=== PATIENT | male | born 1955 | race Asian ===

== ENCOUNTER 2017-09-01 12:14 | Day surgery (SDC) | payer OTHER ==
[~2017-09-01 12:14] MED LIST: CEFAZOLIN 2 GM/50 ML (PMX) 50 ML IVPB; SOD CHLORIDE 0.9% 1,000 ML IV
[2017-09-01] MEDS ORDERED: FENTAnyl 50 MCG/ML VIAL (13:54)
[2017-09-01] MEDS: BUPIVACAINE 0.25% (MPF) 30 ML INJ (14:29)
[2017-09-01] MEDS: POLYMYXIN/BACITRACIN 1L IRRIG (14:30)
[2017-09-01] MEDS ORDERED: PROPOFOL 20 ML (14:53)
[2017-09-01] MEDS ORDERED: SUCCINYLCHOLINE CHLORIDE 100 MG/5 ML SYG IV (14:53)
[2017-09-01] MEDS ORDERED: LIDOCAINE 2% (SDV) 5 ML INJ (14:53)
[2017-09-01] MEDS ORDERED: ROCURONIUM 50 MG INJ (14:53)
[2017-09-01] MEDS ORDERED: SUGAMMADEX SODIUM 200 MG/2 ML VIAL IV (14:53)
[2017-09-01] MEDS ORDERED: CEFAZOLIN 1 GM INJ (14:53)
[2017-09-01] MEDS ORDERED: ONDANSETRON 4 MG INJ IV (15:00)
[2017-09-01] MEDS ORDERED: DIPHENHYDRAMINE 50 MG INJ IV (15:00)
[2017-09-01] MEDS ORDERED: FENTAnyl 50 MCG/ML VIAL IV ×2 (15:00)
[2017-09-01] MEDS ORDERED: MEPERIDINE 25 MG INJ IV (15:00)
[2017-09-01] MEDS ORDERED: METOCLOPRAMIDE 10 MG INJ IV (15:00)
[2017-09-01] MEDS ORDERED: HYDROmorphONE (0.2 MG/ML) 10ML SYG IV ×2 (15:00)
[2017-09-01] MEDS ORDERED: ROPIVACAINE 0.5 % 30 ML VIAL (15:04)
[2017-09-01] MEDS ORDERED: HYDROCODONE/APAP (5/325) TAB PO (15:30)
[2017-09-01] MEDS: HYDROmorphONE (0.2 MG/ML) 10ML SYG IV (15:56)
== END 2017-09-01 18:34 | disposition home or self-care (01) ==
LOC: SDS 12:14
DX: K40.30 Unilateral inguinal hernia, with obstruction, without gangrene, not specified as recurrent (principal); I10 Essential (primary) hypertension
CPT/HCPCS: 49507

== ENCOUNTER 2019-02-02 10:38 | Inpatient (IN) | payer MEDICARE, OTHER, MEDICAID ==
[2019-02-02 11:01] LABS: ADD MAN DIFF? NO
[2019-02-02 11:13] LABS: WHITE BLOOD COUNT 6.5 10^3/ul (4.8-10.8)
[2019-02-02 11:13] LABS: BASOPHILS % 0.3 % (0.0-2.0); HEMATOCRIT 43.8 % (42.0-52.0); HEMOGLOBIN 13.5 g/dl (14.0-18.0); LYMPHOCYTES # 0.7 10^3/ul (0.8-2.9); LYMPHOCYTES % 10.6 % (15.0-51.0); MEAN CORPUSCULAR HEMOGLOBIN 27.7 pg (29.0-33.0); MEAN CORPUSCULAR HGB CONC 30.8 g/dl (32.0-37.0); MEAN CORPUSCULAR VOLUME 89.9 fl (82.0-101.0); MONOCYTE # 0.6 10^3/ul (0.3-0.9); MONOCYTES % 8.6 % (0.0-11.0); NEUTROPHIL # 5.2 10^3/ul (1.6-7.5); NEUTROPHILS % 80.2 % (39.0-77.0); PLATELET COUNT 278 10^3/UL (140-415); RED BLOOD COUNT 4.87 10^6/ul (4.70-6.10); RED CELL DISTRIBUTION WIDTH 15.6 % (11.5-14.5)
[2019-02-02 11:14] LABS: AADO2 Arterial 316.6 mmHg (7.0-24.0); Arterial Base Excess -8.9 mmol/L (-3.0-3); Arterial Blood Gas Oxygen Sat 95.6 mmHG (95.0-98.0); Arterial Fraction of Oxyhgb 94.4 % (93.0-99.0); Arterial HCO3 14.9 mmol/L (22.0-26.0); Arterial MetHb 0.3 % (0.0-1.5); Arterial pCO2 27.2 mmhg (35-45); MODE MASK - SIMPLE; Site Right Brachial
[2019-02-02] MEDS: IPRATROPIUM (NEB) 0.5 MG/2.5 ML AMP INH (11:15)
[2019-02-02] MEDS: ALBUTEROL 0.5% (NEB) 2.5 MG/0.5 ML AMP INH (11:15)
[2019-02-02] MEDS: DILTIAZEM 25 MG INJ IV (11:19)
[2019-02-02 11:22] LABS: INR 1.32; PROTIME 16.5 Sec (11.9-14.9); PT RATIO 1.3
[2019-02-02 11:23] LABS: PARTIAL THROMBOPLASTIN TIME 36.5 Sec (23.0-35.0)
[2019-02-02] MEDS: CEFEPIME 2GM/50 ML (PMX) 50 ML IVPB (11:24)
[2019-02-02 11:29] LABS: ALANINE AMINOTRANSFERASE 59 IU/L (13-69); ALBUMIN/GLOBULIN RATIO 1.17; ALKALINE PHOSPHATASE 67 IU/L (42-121); ANION GAP 15 (5-13); ASPARTATE AMINO TRANSFERASE 52 IU/L (15-46); BILIRUBIN,INDIRECT 1.7 mg/dl (0-1.1); BILIRUBIN,TOTAL 1.7 mg/dl (0.2-1.3); BLOOD UREA NITROGEN 30 mg/dl (7-20); CALCIUM 8.6 mg/dl (8.4-10.2); CARBON DIOXIDE 17 mmol/L (21-31); CHLORIDE 114 mmol/L (97-110); CREATINE KINASE 208 IU/L (23-200); CREATININE 1.87 mg/dl (0.61-1.24); Estimated GFR 37 mL/min (>60); GLUCOSE 204 mg/dl (70-220); POTASSIUM 3.9 mmol/L (3.5-5.1); SODIUM 146 mmol/L (135-144); TOTAL PROTEIN 7.4 g/dl (6.1-8.1)
[2019-02-02] MEDS: DILTIAZEM-D5W 125MG/125ML DRIP 125 ML IV (11:30)
[2019-02-02 11:37] LABS: CK INDEX 1.7
[2019-02-02 11:38] LABS: D-DIMER 1554.61 ng/ml (<460)
[2019-02-02] MEDS: LORAZEPAM 2 MG INJ IV (11:40)
[2019-02-02 11:42] LABS: B-TYPE NATRIURETIC PEPTIDE 8220 PG/ML (0-125)
[2019-02-02 11:49] LABS: CK-MB 3.54 ng/ml (0.0-2.4)
[2019-02-02 11:51] LABS: TROPONIN-I 0.144 ng/ml (0.000-0.120)
[2019-02-02] MEDS: VANCOMYCIN 1 GM (PMX) 250 ML IVPB (12:07)
[2019-02-02] MEDS: ASPIRIN 325 MG TAB PO (12:31)
[2019-02-02] MEDS ORDERED: ALBUTEROL 0.083% (NEB) 2.5 MG/3 ML AMP NEB (13:00)
[2019-02-02] MEDS ORDERED: DOCUSATE SODIUM 100 MG CAP PO (13:00)
[2019-02-02] MEDS ORDERED: MAGNESIUM HYDROXIDE 30ML CUP PO (13:00)
[2019-02-02 13:45] LABS: LACTIC ACID 2.7 mmol/L (0.5-2.0)
[2019-02-02] MEDS: ENOXAPARIN 30 MG/0.3 ML SYG SC (14:34)
[2019-02-02 15:52] LABS: CREATINE KINASE 218 IU/L (23-200)
[2019-02-02] MEDS ORDERED: DILTIAZEM-D5W 125MG/125ML DRIP 125 ML IV (16:00)
[2019-02-02 16:03] LABS: CK INDEX 2.2
[2019-02-02 16:15] LABS: CK-MB 4.79 ng/ml (0.0-2.4); TROPONIN-I 0.158 ng/ml (0.000-0.120)
[2019-02-02 16:15] LABS: LACTIC ACID 2.3 mmol/L (0.5-2.0)
[2019-02-02] MEDS: FUROSEMIDE 20 MG INJ IV (18:10)
[2019-02-02] MEDS: METOPROLOL 5 MG INJ IV ×3 (18:10→23:01)
[2019-02-02] MEDS: APIXABAN 5 MG TABLET PO (20:15)
[2019-02-02] MEDS: CEFEPIME 1GM/50 ML (PMX) 50 ML IVPB (20:15)
[2019-02-02] MEDS: ATORVASTATIN 20 MG TAB PO (20:15)
[2019-02-02] MEDS ORDERED: ENOXAPARIN 100 MG/ML SYG SC (21:00)
[2019-02-03] MEDS: METOPROLOL 5 MG INJ IV ×5 (01:08→21:09)
[2019-02-03 01:14] LABS: CREATINE KINASE 228 IU/L (23-200)
[2019-02-03 01:25] LABS: CK INDEX 2.6
[2019-02-03 01:26] LABS: CK-MB 5.86 ng/ml (0.0-2.4)
[2019-02-03 05:19] LABS: ADD MAN DIFF? NO
[2019-02-03 05:32] LABS: BASOPHILS % 0.1 % (0.0-2.0); HEMATOCRIT 49.5 % (42.0-52.0); HEMOGLOBIN 14.9 g/dl (14.0-18.0); LYMPHOCYTES # 0.7 10^3/ul (0.8-2.9); LYMPHOCYTES % 6.6 % (15.0-51.0); MEAN CORPUSCULAR HEMOGLOBIN 28.1 pg (29.0-33.0); MEAN CORPUSCULAR HGB CONC 30.1 g/dl (32.0-37.0); MEAN CORPUSCULAR VOLUME 93.4 fl (82.0-101.0); MEAN PLATELET VOLUME 9.9 fl (7.4-10.4); MONOCYTE # 0.9 10^3/ul (0.3-0.9); MONOCYTES % 8.8 % (0.0-11.0); NEUTROPHIL # 8.5 10^3/ul (1.6-7.5); NEUTROPHILS % 83.9 % (39.0-77.0); PLATELET COUNT 203 10^3/UL (140-415); RED CELL DISTRIBUTION WIDTH 16.2 % (11.5-14.5)
[2019-02-03 05:32] LABS: WHITE BLOOD COUNT 10.1 10^3/ul (4.8-10.8)
[2019-02-03] MEDS: PANTOPRAZOLE (EC) 40 MG TAB PO (05:43)
[2019-02-03] MEDS: FUROSEMIDE 20 MG INJ IV (05:43)
[2019-02-03 05:59] LABS: CREATINE KINASE 246 IU/L (23-200)
[2019-02-03 06:00] LABS: LACTIC ACID 4.4 mmol/L (0.5-2.0)
[2019-02-03 06:01] LABS: CHOL/HDL RATIO 2.2 RATIO; HDL CHOLESTEROL 44 mg/dl (30-78); LDL CHOLESTEROL,CALCULATED 48 mg/dl; TRIGLYCERIDES 46 mg/dl (0-149)
[2019-02-03 06:01] LABS: CHOLESTEROL 101 mg/dl (100-200)
[2019-02-03 06:03] LABS: ALBUMIN 3.9 g/dl (3.3-4.9); ALBUMIN/GLOBULIN RATIO 1.18; ALKALINE PHOSPHATASE 73 IU/L (42-121); ANION GAP 17 (5-13); BILIRUBIN,INDIRECT 2.7 mg/dl (0-1.1); BILIRUBIN,TOTAL 2.8 mg/dl (0.2-1.3); BLOOD UREA NITROGEN 42 mg/dl (7-20); CALCIUM 8.9 mg/dl (8.4-10.2); CARBON DIOXIDE 14 mmol/L (21-31); CHLORIDE 115 mmol/L (97-110); CREATININE 2.45 mg/dl (0.61-1.24); Estimated GFR 27 mL/min (>60); GLUCOSE 97 mg/dl (70-220); MAGNESIUM 2.3 mg/dl (1.7-2.5); POTASSIUM 5.5 mmol/L (3.5-5.1); SODIUM 146 mmol/L (135-144); TOTAL PROTEIN 7.2 g/dl (6.1-8.1)
[2019-02-03 06:05] LABS: CK INDEX 2.8
[2019-02-03 06:13] LABS: ALANINE AMINOTRANSFERASE 2231 IU/L (13-69)
[2019-02-03] MEDS: SOD CHLORIDE 0.9% 500 ML IV (06:14)
[2019-02-03] MEDS: INSULIN REGULAR, HUMAN 100 UNIT/1 ML 3ML VIAL IVP (06:58)
[2019-02-03] MEDS ORDERED: DEXTROSE 50% 50 ML SYRINGE IV (07:00)
[2019-02-03] MEDS: DEXTROSE 50% 50 ML SYRINGE IV (07:00)
[2019-02-03] MEDS ORDERED: AMLODIPINE 10 MG TAB PO (09:00)
[2019-02-03] MEDS: NA POLYST SULFON 15 GM/60 ML BTL PO (10:22)
[2019-02-03] MEDS: CEFEPIME 1GM/50 ML (PMX) 50 ML IVPB ×2 (10:23→21:05)
[2019-02-03] MEDS: APIXABAN 5 MG TABLET PO ×2 (10:23→21:05)
[2019-02-03 11:36] LABS: LACTIC ACID 5.4 mmol/L (0.5-2.0)
[2019-02-03] MEDS: ASPIRIN (EC) 81 MG TAB PO (11:59)
[2019-02-03] MEDS: METOPROLOL (XL) 50 MG TAB PO (12:00)
[2019-02-03] MEDS: LIDOCAINE 1% (MPF) 5 ML VIAL SC (12:30)
[2019-02-03 13:18] LABS: AADO2 Arterial 259.5 mmHg (7.0-24.0); Allen Test ACCEPTAB; Arterial Base Excess -13.4 mmol/L (-3.0-3); Arterial Blood Gas Oxygen Sat 91.8 mmHG (95.0-98.0); Arterial COHb 0.8 % (0.0-3.0); Arterial Fraction of Oxyhgb 90.8 % (93.0-99.0); Arterial HCO3 10.8 mmol/L (22.0-26.0); Arterial MetHb 0.3 % (0.0-1.5); Arterial pCO2 22.5 mmhg (35-45); MODE HFNC; Site Left Radial
[2019-02-03] MEDS: BUMETANIDE 12 MG in DEXTROSE 5% 72 ML IV (16:00)
[2019-02-03] MEDS: SODIUM BICARBONATE (IV ADD) 100 MEQ in DEXTROSE 5% 900 ML IV (16:02)
[2019-02-03 17:08] LABS: ADD UMIC YES; UR ASCORBIC ACID NEGATIVE (NEGATIVE); UR BACTERIA FEW /HPF (NONE SEEN); UR BILIRUBIN (Dip) NEGATIVE (NEGATIVE); UR BLOOD (Dip) 3+ mg/dL (NEGATIVE); UR CLARITY CLOUDY (CLEAR); UR COLOR AMBER (YELLOW); UR GLUCOSE (Dip) NEGATIVE (NEGATIVE); UR KETONES (Dip) NEGATIVE (NEGATIVE); UR LEUKOCYTE ESTERASE (Dip) 1+ Leu/ul (NEGATIVE); UR MUCUS FEW /HPF (NONE SEEN); UR NITRITE (Dip) NEGATIVE (NEGATIVE); UR RBC 52 /HPF (0-5); UR SPECIFIC GRAVITY (Dip) 1.013 (1.003-1.030); UR TOTAL PROTEIN (Dip) 2+ mg/dl (NEGATIVE); UR UROBILINOGEN (Dip) NEGATIVE (NEGATIVE); UR WBC 7 /HPF (0-5)
[2019-02-03 17:12] LABS: HEMATOCRIT 46.8 % (42.0-52.0); HEMOGLOBIN 14.4 g/dl (14.0-18.0)
[2019-02-03 17:17] LABS: SODIUM,URINE RANDOM 20 mmol/L (30-90)
[2019-02-03 17:21] LABS: CREATININE,URINE RANDOM 130.53 mg/dl (20-370); PROTEIN/CREAT RATIO 0.98 RATIO
[2019-02-03 18:07] LABS: LACTIC ACID 3.7 mmol/L (0.5-2.0)
[2019-02-03] MEDS: ATORVASTATIN 20 MG TAB PO (21:05)
[2019-02-03] MEDS: morphine 2 MG INJ IV (23:20)
[2019-02-04] MEDS: METOPROLOL 5 MG INJ IV ×2 (02:13→17:27)
[2019-02-04 03:13] LABS: ADD UMIC YES; UR AMORPHOUS CRYSTAL FEW /HPF (NONE SEEN); UR ASCORBIC ACID NEGATIVE (NEGATIVE); UR BACTERIA FEW /HPF (NONE SEEN); UR BILIRUBIN (Dip) NEGATIVE (NEGATIVE); UR BLOOD (Dip) 2+ mg/dL (NEGATIVE); UR CLARITY CLOUDY (CLEAR); UR COLOR AMBER (YELLOW); UR GLUCOSE (Dip) NEGATIVE (NEGATIVE); UR HYALINE CAST FEW /HPF (NONE SEEN); UR KETONES (Dip) TRACE mg/dL (NEGATIVE); UR LEUKOCYTE ESTERASE (Dip) TRACE Leu/ul (NEGATIVE); UR MUCUS MANY /HPF (NONE SEEN); UR NITRITE (Dip) NEGATIVE (NEGATIVE); UR RBC 36 /HPF (0-5); UR SPECIFIC GRAVITY (Dip) 1.017 (1.003-1.030); UR SQUAMOUS EPITHELIAL CELL FEW /HPF (FEW); UR TOTAL PROTEIN (Dip) 2+ mg/dl (NEGATIVE); UR UROBILINOGEN (Dip) NEGATIVE (NEGATIVE); UR WBC 8 /HPF (0-5)
[2019-02-04] MEDS: SODIUM BICARBONATE (IV ADD) 100 MEQ in DEXTROSE 5% 900 ML IV ×2 (05:07→14:55)
[2019-02-04] MEDS: PANTOPRAZOLE (EC) 40 MG TAB PO (05:07)
[2019-02-04 05:44] LABS: ADD MAN DIFF? NO
[2019-02-04 05:52] LABS: BASOPHILS % 0.1 % (0.0-2.0); HEMOGLOBIN 14.5 g/dl (14.0-18.0); LYMPHOCYTES # 0.6 10^3/ul (0.8-2.9); LYMPHOCYTES % 4.2 % (15.0-51.0); MEAN CORPUSCULAR HEMOGLOBIN 28.3 pg (29.0-33.0); MEAN CORPUSCULAR HGB CONC 31.5 g/dl (32.0-37.0); MEAN CORPUSCULAR VOLUME 89.7 fl (82.0-101.0); MEAN PLATELET VOLUME 9.9 fl (7.4-10.4); MONOCYTES % 6.6 % (0.0-11.0); NEUTROPHIL # 13.2 10^3/ul (1.6-7.5); NEUTROPHILS % 88.4 % (39.0-77.0); NUCLEATED RED BLOOD CELLS # 0.1 10^3/ul (0.0-0.0); NUCLEATED RED BLOOD CELLS% 0.5 /100WBC (0.0-0.0); PLATELET COUNT 176 10^3/UL (140-415); RED BLOOD COUNT 5.13 10^6/ul (4.70-6.10); RED CELL DISTRIBUTION WIDTH 15.7 % (11.5-14.5)
[2019-02-04 05:52] LABS: WHITE BLOOD COUNT 14.9 10^3/ul (4.8-10.8)
[2019-02-04 06:16] LABS: ALBUMIN 3.7 g/dl (3.3-4.9); ALBUMIN/GLOBULIN RATIO 1.08; ALKALINE PHOSPHATASE 87 IU/L (42-121); ANION GAP 13 (5-13); BILIRUBIN,INDIRECT 1.8 mg/dl (0-1.1); BILIRUBIN,TOTAL 1.8 mg/dl (0.2-1.3); BLOOD UREA NITROGEN 64 mg/dl (7-20); CALCIUM 7.7 mg/dl (8.4-10.2); CARBON DIOXIDE 17 mmol/L (21-31); CHLORIDE 109 mmol/L (97-110); CREATINE KINASE 325 IU/L (23-200); CREATININE 3.34 mg/dl (0.61-1.24); Estimated GFR 19 mL/min (>60); GLUCOSE 139 mg/dl (70-220); MAGNESIUM 2.4 mg/dl (1.7-2.5); POTASSIUM 5.8 mmol/L (3.5-5.1); SODIUM 139 mmol/L (135-144); TOTAL PROTEIN 7.1 g/dl (6.1-8.1)
[2019-02-04 06:16] LABS: URIC ACID 14.2 mg/dl (3.1-7.9)
[2019-02-04 06:19] LABS: LACTIC ACID 2.9 mmol/L (0.5-2.0)
[2019-02-04] MEDS: DEXTROSE 50% 50 ML SYRINGE IV (06:51)
[2019-02-04] MEDS: INSULIN REGULAR, HUMAN 100 UNIT/1 ML 3ML VIAL IVP (06:53)
[2019-02-04 07:15] LABS: ASPARTATE AMINO TRANSFERASE 4363 IU/L (15-46)
[2019-02-04 07:27] LABS: ALANINE AMINOTRANSFERASE 4246 IU/L (13-69)
[2019-02-04] MEDS ORDERED: FUROSEMIDE 20 MG INJ IV (09:00)
[2019-02-04] MEDS: CEFEPIME 1GM/50 ML (PMX) 50 ML IVPB ×2 (09:44→22:04)
[2019-02-04] MEDS: ASPIRIN (EC) 81 MG TAB PO (09:44)
[2019-02-04] MEDS: APIXABAN 5 MG TABLET PO ×2 (09:44→21:00)
[2019-02-04] MEDS: METOPROLOL (XL) 50 MG TAB PO ×2 (09:45→11:50)
[2019-02-04 10:16] LABS: AADO2 Arterial 160.8 mmHg (7.0-24.0); Allen Test ACCEPTAB; Arterial Base Excess -9.9 mmol/L (-3.0-3); Arterial Blood Gas Oxygen Sat 89.2 mmHG (95.0-98.0); Arterial COHb 0.9 % (0.0-3.0); Arterial Fraction of Oxyhgb 88.3 % (93.0-99.0); Arterial HCO3 17.1 mmol/L (22.0-26.0); Arterial MetHb 0.1 % (0.0-1.5); Arterial pCO2 41.4 mmhg (35-45); MODE NASAL CANNULA; Site Left Radial
[2019-02-04] MEDS: BUMETANIDE 12 MG in DEXTROSE 5% 72 ML IV (11:12)
[2019-02-04 11:17] LABS: HAAIG REFLEX REFLEX FILED
[2019-02-04] MEDS: NA BICARBONATE 8.4% 50 ML SYG IV ×2 (11:45→11:46)
[2019-02-04] MEDS: ALBUMIN HUMAN 25% 100 ML IV ×2 (11:48→18:29)
[2019-02-04 13:33] LABS: HEPATITIS B SURFACE ANTIGEN NEGATIVE (NEGATIVE)
[2019-02-04 13:51] LABS: HEPATITIS B CORE ANTIBODY REACTIVE (NEGATIVE); HEPATITIS C VIRAL ANTIBODY NEGATIVE (NEGATIVE)
[2019-02-04] MEDS: morphine 2 MG INJ IV (14:56)
[2019-02-04] MEDS: ATORVASTATIN 20 MG TAB PO (21:00)
[2019-02-04] MEDS ORDERED: PENDING SANTYL ORDER FOR WOUND CARE XX (21:00)
[2019-02-04 21:11] LABS: AADO2 Arterial 139.3 mmHg (7.0-24.0); Allen Test ACCEPTAB; Arterial Base Excess 1.9 mmol/L (-3.0-3); Arterial Blood Gas Oxygen Sat 96.5 mmHG (95.0-98.0); Arterial COHb 0.6 % (0.0-3.0); Arterial Fraction of Oxyhgb 95.8 % (93.0-99.0); Arterial HCO3 26.6 mmol/L (22.0-26.0); Arterial MetHb 0.1 % (0.0-1.5); Arterial pCO2 41.7 mmhg (35-45); Blood Gas IEPAP 15/5; Blood Gas PS 10; MODE MASK - BIPAP; Site Right Radial
[2019-02-05] MEDS: SODIUM BICARBONATE (IV ADD) 100 MEQ in DEXTROSE 5% 900 ML IV (02:13)
[2019-02-05] MEDS: ALBUMIN HUMAN 25% 100 ML IV ×3 (02:16→16:27)
[2019-02-05 05:21] LABS: ADD MAN DIFF? NO
[2019-02-05 05:34] LABS: WHITE BLOOD COUNT 11.8 10^3/ul (4.8-10.8)
[2019-02-05 05:34] LABS: ABNORMAL IP MESSAGE 1; BASOPHILS % 0.1 % (0.0-2.0); EOSINOPHILS % 0.2 % (0.0-7.0); HEMATOCRIT 37.4 % (42.0-52.0); HEMOGLOBIN 12.1 g/dl (14.0-18.0); LYMPHOCYTES # 0.5 10^3/ul (0.8-2.9); LYMPHOCYTES % 4.5 % (15.0-51.0); MEAN CORPUSCULAR HEMOGLOBIN 28.1 pg (29.0-33.0); MEAN CORPUSCULAR HGB CONC 32.4 g/dl (32.0-37.0); MEAN PLATELET VOLUME 10.2 fl (7.4-10.4); MONOCYTE # 0.7 10^3/ul (0.3-0.9); MONOCYTES % 5.8 % (0.0-11.0); NEUTROPHIL # 10.5 10^3/ul (1.6-7.5); NEUTROPHILS % 88.9 % (39.0-77.0); NUCLEATED RED BLOOD CELLS% 0.3 /100WBC (0.0-0.0); PLATELET COUNT 137 10^3/UL (140-415); POSITIVE DIFF @See below; RED CELL DISTRIBUTION WIDTH 15.2 % (11.5-14.5)
[2019-02-05] MEDS: PANTOPRAZOLE (EC) 40 MG TAB PO (05:47)
[2019-02-05 06:23] LABS: ALBUMIN 3.8 g/dl (3.3-4.9); ALKALINE PHOSPHATASE 66 IU/L (42-121); ANION GAP 12 (5-13); BILIRUBIN,INDIRECT 1.8 mg/dl (0-1.1); BILIRUBIN,TOTAL 1.8 mg/dl (0.2-1.3); BLOOD UREA NITROGEN 67 mg/dl (7-20); CALCIUM 7.2 mg/dl (8.4-10.2); CARBON DIOXIDE 39 mmol/L (21-31); CHLORIDE 93 mmol/L (97-110); CREATININE 2.42 mg/dl (0.61-1.24); Estimated GFR 27 mL/min (>60); GLUCOSE 136 mg/dl (70-220); MAGNESIUM 2.1 mg/dl (1.7-2.5); SODIUM 144 mmol/L (135-144); TOTAL PROTEIN 6.5 g/dl (6.1-8.1)
[2019-02-05 06:34] LABS: ALANINE AMINOTRANSFERASE 2206 IU/L (13-69); ASPARTATE AMINO TRANSFERASE 1424 IU/L (15-46)
[2019-02-05 06:35] LABS: POTASSIUM 2.7 mmol/L (3.5-5.1)
[2019-02-05] MEDS: POTASSIUM CHLORIDE (SR) 10 MEQ TAB PO (07:46)
[2019-02-05] MEDS: APIXABAN 5 MG TABLET PO ×2 (08:28→21:16)
[2019-02-05] MEDS: ASPIRIN (EC) 81 MG TAB PO (08:28)
[2019-02-05] MEDS: CEFEPIME 1GM/50 ML (PMX) 50 ML IVPB ×2 (08:28→21:16)
[2019-02-05] MEDS: METOPROLOL (XL) 100 MG TAB PO (08:31)
[2019-02-05] MEDS: METOPROLOL 5 MG INJ IV (09:11)
[2019-02-05] MEDS ORDERED: AMIODARONE 150MG/D5W BOLUS 100 ML IV (10:00)
[2019-02-05] MEDS: AMIODARONE 150MG/D5W BOLUS 100 ML IV (10:17)
[2019-02-05] MEDS: BUMETANIDE 1 MG INJ IV ×2 (10:24→16:27)
[2019-02-05] MEDS: AMIODARONE 900 MG in DEXTROSE 5% 482 ML IV (10:44)
[2019-02-05 16:03] LABS: ALBUMIN 4.1 g/dl (3.3-4.9); ALBUMIN/GLOBULIN RATIO 1.46; ALKALINE PHOSPHATASE 73 IU/L (42-121); ANION GAP 11 (5-13); BILIRUBIN,INDIRECT 1.9 mg/dl (0-1.1); BILIRUBIN,TOTAL 1.9 mg/dl (0.2-1.3); BLOOD UREA NITROGEN 68 mg/dl (7-20); CALCIUM 7.6 mg/dl (8.4-10.2); CARBON DIOXIDE 39 mmol/L (21-31); CHLORIDE 89 mmol/L (97-110); CREATININE 2.15 mg/dl (0.61-1.24); Estimated GFR 31 mL/min (>60); GLUCOSE 127 mg/dl (70-220); POTASSIUM 3.5 mmol/L (3.5-5.1); SODIUM 139 mmol/L (135-144); TOTAL PROTEIN 6.9 g/dl (6.1-8.1)
[2019-02-05 16:10] LABS: ASPARTATE AMINO TRANSFERASE 1126 IU/L (15-46)
[2019-02-05 16:11] LABS: ALANINE AMINOTRANSFERASE 2010 IU/L (13-69)
[2019-02-05] MEDS: ONDANSETRON 4 MG INJ IV (16:27)
[2019-02-05] MEDS: ATORVASTATIN 20 MG TAB PO (21:16)
[2019-02-05] MEDS ORDERED: NORepinephrine 8MG/250 ML (PMX 250 ML IV (23:00)
[2019-02-06] MEDS: ALBUMIN HUMAN 25% 100 ML IV (03:30)
[2019-02-06 05:09] LABS: ADD MAN DIFF? NO
[2019-02-06 05:27] LABS: BASOPHILS % 0.2 % (0.0-2.0); EOSINOPHILS % 0.4 % (0.0-7.0); HEMATOCRIT 36.3 % (42.0-52.0); HEMOGLOBIN 11.7 g/dl (14.0-18.0); LYMPHOCYTES # 0.9 10^3/ul (0.8-2.9); LYMPHOCYTES % 8.7 % (15.0-51.0); MEAN CORPUSCULAR HEMOGLOBIN 28.3 pg (29.0-33.0); MEAN CORPUSCULAR HGB CONC 32.2 g/dl (32.0-37.0); MEAN CORPUSCULAR VOLUME 87.9 fl (82.0-101.0); MEAN PLATELET VOLUME 10.3 fl (7.4-10.4); MONOCYTE # 0.8 10^3/ul (0.3-0.9); MONOCYTES % 7.9 % (0.0-11.0); NEUTROPHIL # 8.1 10^3/ul (1.6-7.5); NEUTROPHILS % 82.4 % (39.0-77.0); NUCLEATED RED BLOOD CELLS # 0.1 10^3/ul (0.0-0.0); NUCLEATED RED BLOOD CELLS% 0.6 /100WBC (0.0-0.0); PLATELET COUNT 128 10^3/UL (140-415); RED BLOOD COUNT 4.13 10^6/ul (4.70-6.10); RED CELL DISTRIBUTION WIDTH 15.4 % (11.5-14.5)
[2019-02-06 05:27] LABS: WHITE BLOOD COUNT 9.8 10^3/ul (4.8-10.8)
[2019-02-06 05:55] LABS: ALBUMIN 4.1 g/dl (3.3-4.9); ALBUMIN/GLOBULIN RATIO 1.51; ALKALINE PHOSPHATASE 70 IU/L (42-121); ASPARTATE AMINO TRANSFERASE 678 IU/L (15-46); BILIRUBIN,INDIRECT 1.6 mg/dl (0-1.1); BILIRUBIN,TOTAL 1.6 mg/dl (0.2-1.3); BLOOD UREA NITROGEN 69 mg/dl (7-20); CALCIUM 7.7 mg/dl (8.4-10.2); CHLORIDE 88 mmol/L (97-110); CREATININE 2.32 mg/dl (0.61-1.24); Estimated GFR 29 mL/min (>60); GLUCOSE 105 mg/dl (70-220); MAGNESIUM 2.2 mg/dl (1.7-2.5); POTASSIUM 3.1 mmol/L (3.5-5.1); SODIUM 140 mmol/L (135-144); TOTAL PROTEIN 6.8 g/dl (6.1-8.1)
[2019-02-06] MEDS: BUMETANIDE 1 MG INJ IV (06:00)
[2019-02-06] MEDS: PANTOPRAZOLE (EC) 40 MG TAB PO (06:02)
[2019-02-06 06:05] LABS: ANION GAP 13 (5-13)
[2019-02-06 06:51] LABS: ALANINE AMINOTRANSFERASE 1493 IU/L (13-69); CARBON DIOXIDE 39 mmol/L (21-31)
[2019-02-06] MEDS: POTASSIUM CHLORIDE (SR) 20 MEQ TAB PO ×2 (07:08→13:10)
[2019-02-06] MEDS: CEFEPIME 1GM/50 ML (PMX) 50 ML IVPB (08:20)
[2019-02-06] MEDS: APIXABAN 5 MG TABLET PO ×2 (08:20→20:56)
[2019-02-06] MEDS: METOPROLOL (XL) 100 MG TAB PO (08:21)
[2019-02-06] MEDS: ASPIRIN (EC) 81 MG TAB PO (08:21)
[2019-02-06] MEDS ORDERED: POTASSIUM CHLORIDE 100 ML IVPB (09:30)
[2019-02-06] MEDS: AMIODARONE 200 MG TAB PO ×2 (13:11→20:56)
[2019-02-06] MEDS: DIGOXIN 500 MCG INJ IV (15:16)
[2019-02-06] MEDS: METOPROLOL (XL) 50 MG TAB PO (20:55)
[2019-02-06] MEDS: ATORVASTATIN 20 MG TAB PO (20:56)
[2019-02-07 04:56] LABS: AADO2 Arterial 137.1 mmHg (7.0-24.0); Allen Test ACCEPTAB; Arterial Blood Gas Oxygen Sat 95.9 mmHG (95.0-98.0); Arterial COHb 0.7 % (0.0-3.0); Arterial Fraction of Oxyhgb 95.1 % (93.0-99.0); Arterial HCO3 32.6 mmol/L (22.0-26.0); Arterial MetHb 0.1 % (0.0-1.5); Arterial pCO2 50.1 mmhg (35-45); Blood Gas IEPAP 15/5; Blood Gas PS 10; MODE MASK - BIPAP; Site Left Radial
[2019-02-07 05:16] LABS: ADD MAN DIFF? NO
[2019-02-07 05:27] LABS: WHITE BLOOD COUNT 9.8 10^3/ul (4.8-10.8)
[2019-02-07 05:27] LABS: BASOPHILS % 0.2 % (0.0-2.0); EOSINOPHILS # 0.1 10^3/ul (0.0-0.5); EOSINOPHILS % 0.9 % (0.0-7.0); HEMATOCRIT 37.5 % (42.0-52.0); HEMOGLOBIN 11.9 g/dl (14.0-18.0); LYMPHOCYTES # 0.8 10^3/ul (0.8-2.9); LYMPHOCYTES % 8.4 % (15.0-51.0); MEAN CORPUSCULAR HEMOGLOBIN 28.2 pg (29.0-33.0); MEAN CORPUSCULAR HGB CONC 31.7 g/dl (32.0-37.0); MEAN CORPUSCULAR VOLUME 88.9 fl (82.0-101.0); MEAN PLATELET VOLUME 10.4 fl (7.4-10.4); MONOCYTES % 10.6 % (0.0-11.0); NEUTROPHIL # 7.8 10^3/ul (1.6-7.5); NEUTROPHILS % 79.5 % (39.0-77.0); NUCLEATED RED BLOOD CELLS # 0.1 10^3/ul (0.0-0.0); NUCLEATED RED BLOOD CELLS% 0.6 /100WBC (0.0-0.0); PLATELET COUNT 142 10^3/UL (140-415); RED BLOOD COUNT 4.22 10^6/ul (4.70-6.10); RED CELL DISTRIBUTION WIDTH 15.7 % (11.5-14.5)
[2019-02-07 05:49] LABS: LACTIC ACID 1.2 mmol/L (0.5-2.0)
[2019-02-07 05:54] LABS: DIGOXIN 0.5 ng/ml (1.0-2.0)
[2019-02-07 05:59] LABS: ALBUMIN 3.9 g/dl (3.3-4.9); ALKALINE PHOSPHATASE 85 IU/L (42-121); ANION GAP 9 (5-13); ASPARTATE AMINO TRANSFERASE 379 IU/L (15-46); BILIRUBIN,INDIRECT 1.6 mg/dl (0-1.1); BILIRUBIN,TOTAL 1.6 mg/dl (0.2-1.3); BLOOD UREA NITROGEN 61 mg/dl (7-20); CALCIUM 8.2 mg/dl (8.4-10.2); CARBON DIOXIDE 39 mmol/L (21-31); CHLORIDE 91 mmol/L (97-110); CREATININE 1.75 mg/dl (0.61-1.24); Estimated GFR 40 mL/min (>60); GLUCOSE 108 mg/dl (70-220); MAGNESIUM 2.4 mg/dl (1.7-2.5); POTASSIUM 3.8 mmol/L (3.5-5.1); SODIUM 139 mmol/L (135-144); TOTAL PROTEIN 6.5 g/dl (6.1-8.1)
[2019-02-07 06:02] LABS: B-TYPE NATRIURETIC PEPTIDE 3470 PG/ML (0-125)
[2019-02-07 06:11] LABS: ALANINE AMINOTRANSFERASE 1156 IU/L (13-69)
[2019-02-07] MEDS: PANTOPRAZOLE (EC) 40 MG TAB PO (06:19)
[2019-02-07] MEDS: APIXABAN 5 MG TABLET PO ×2 (09:04→20:18)
[2019-02-07] MEDS: AMIODARONE 200 MG TAB PO ×2 (09:04→13:10)
[2019-02-07] MEDS: ASPIRIN (EC) 81 MG TAB PO (09:05)
[2019-02-07] MEDS: BUMETANIDE 1 MG INJ IV (09:05)
[2019-02-07] MEDS: METOPROLOL (XL) 50 MG TAB PO ×2 (09:05→20:18)
[2019-02-07] MEDS: DIGOXIN 500 MCG INJ IV (14:51)
[2019-02-07] MEDS: ATORVASTATIN 20 MG TAB PO (20:18)
[2019-02-08] MEDS: PANTOPRAZOLE (EC) 40 MG TAB PO (06:19)
[2019-02-08 06:26] LABS: ADD MAN DIFF? NO
[2019-02-08 06:31] LABS: WHITE BLOOD COUNT 8.9 10^3/ul (4.8-10.8)
[2019-02-08 06:31] LABS: BASOPHILS % 0.2 % (0.0-2.0); EOSINOPHILS # 0.2 10^3/ul (0.0-0.5); HEMATOCRIT 36.5 % (42.0-52.0); HEMOGLOBIN 11.5 g/dl (14.0-18.0); LYMPHOCYTES # 0.9 10^3/ul (0.8-2.9); LYMPHOCYTES % 10.2 % (15.0-51.0); MEAN CORPUSCULAR HGB CONC 31.5 g/dl (32.0-37.0); MEAN CORPUSCULAR VOLUME 88.8 fl (82.0-101.0); MEAN PLATELET VOLUME 10.2 fl (7.4-10.4); MONOCYTE # 0.9 10^3/ul (0.3-0.9); MONOCYTES % 9.9 % (0.0-11.0); NEUTROPHIL # 6.9 10^3/ul (1.6-7.5); NEUTROPHILS % 77.3 % (39.0-77.0); NUCLEATED RED BLOOD CELLS% 0.2 /100WBC (0.0-0.0); PLATELET COUNT 139 10^3/UL (140-415); RED BLOOD COUNT 4.11 10^6/ul (4.70-6.10); RED CELL DISTRIBUTION WIDTH 15.3 % (11.5-14.5)
[2019-02-08 07:01] LABS: DIGOXIN 0.4 ng/ml (1.0-2.0)
[2019-02-08 07:03] LABS: ALANINE AMINOTRANSFERASE 867 IU/L (13-69); ALBUMIN 3.8 g/dl (3.3-4.9); ALKALINE PHOSPHATASE 125 IU/L (42-121); ANION GAP 9 (5-13); ASPARTATE AMINO TRANSFERASE 247 IU/L (15-46); BILIRUBIN,INDIRECT 1.7 mg/dl (0-1.1); BILIRUBIN,TOTAL 1.7 mg/dl (0.2-1.3); BLOOD UREA NITROGEN 53 mg/dl (7-20); CALCIUM 8.5 mg/dl (8.4-10.2); CARBON DIOXIDE 38 mmol/L (21-31); CHLORIDE 93 mmol/L (97-110); CREATININE 1.55 mg/dl (0.61-1.24); Estimated GFR 46 mL/min (>60); GLUCOSE 115 mg/dl (70-220); MAGNESIUM 2.3 mg/dl (1.7-2.5); POTASSIUM 3.6 mmol/L (3.5-5.1); SODIUM 140 mmol/L (135-144); TOTAL PROTEIN 6.5 g/dl (6.1-8.1)
[2019-02-08] MEDS: BUMETANIDE 1 MG INJ IV (08:32)
[2019-02-08] MEDS: ASPIRIN (EC) 81 MG TAB PO (08:32)
[2019-02-08] MEDS: APIXABAN 5 MG TABLET PO ×2 (08:32→20:16)
[2019-02-08] MEDS: METOPROLOL (XL) 50 MG TAB PO ×2 (08:32→20:19)
[2019-02-08] MEDS: ATORVASTATIN 20 MG TAB PO (20:16)
[2019-02-09] MEDS: BUMETANIDE 1 MG TAB PO ×2 (06:08→08:16)
[2019-02-09] MEDS: PANTOPRAZOLE (EC) 40 MG TAB PO (06:08)
[2019-02-09 07:31] LABS: ADD MAN DIFF? NO
[2019-02-09 07:34] LABS: WHITE BLOOD COUNT 9.4 10^3/ul (4.8-10.8)
[2019-02-09 07:34] LABS: BASOPHILS % 0.3 % (0.0-2.0); EOSINOPHILS # 0.2 10^3/ul (0.0-0.5); EOSINOPHILS % 2.2 % (0.0-7.0); HEMATOCRIT 36.4 % (42.0-52.0); LYMPHOCYTES # 0.9 10^3/ul (0.8-2.9); LYMPHOCYTES % 9.2 % (15.0-51.0); MEAN CORPUSCULAR HEMOGLOBIN 27.5 pg (29.0-33.0); MEAN CORPUSCULAR HGB CONC 30.2 g/dl (32.0-37.0); MEAN PLATELET VOLUME 10.1 fl (7.4-10.4); MONOCYTE # 1.1 10^3/ul (0.3-0.9); MONOCYTES % 12.1 % (0.0-11.0); NEUTROPHIL # 7.1 10^3/ul (1.6-7.5); NEUTROPHILS % 75.9 % (39.0-77.0); PLATELET COUNT 137 10^3/UL (140-415); RED CELL DISTRIBUTION WIDTH 15.2 % (11.5-14.5)
[2019-02-09 07:59] LABS: MAGNESIUM 2.1 mg/dl (1.7-2.5)
[2019-02-09 08:01] LABS: ALANINE AMINOTRANSFERASE 679 IU/L (13-69); ALKALINE PHOSPHATASE 114 IU/L (42-121); ASPARTATE AMINO TRANSFERASE 162 IU/L (15-46); BILIRUBIN,INDIRECT 1.4 mg/dl (0-1.1); BLOOD UREA NITROGEN 49 mg/dl (7-20); CALCIUM 8.8 mg/dl (8.4-10.2); CHLORIDE 93 mmol/L (97-110); CREATININE 1.48 mg/dl (0.61-1.24); Estimated GFR 48 mL/min (>60); GLUCOSE 105 mg/dl (70-220); POTASSIUM 3.2 mmol/L (3.5-5.1); SODIUM 140 mmol/L (135-144)
[2019-02-09 08:02] LABS: ALBUMIN 3.5 g/dl (3.3-4.9); BILIRUBIN,TOTAL 1.4 mg/dl (0.2-1.3); TOTAL PROTEIN 6.4 g/dl (6.1-8.1)
[2019-02-09 08:16] LABS: ANION GAP 9 (5-13)
[2019-02-09] MEDS: METOPROLOL (XL) 50 MG TAB PO (08:16)
[2019-02-09] MEDS: APIXABAN 5 MG TABLET PO ×2 (08:16→20:09)
[2019-02-09] MEDS: ASPIRIN (EC) 81 MG TAB PO (08:17)
[2019-02-09 08:19] LABS: CARBON DIOXIDE 38 mmol/L (21-31)
[2019-02-09] MEDS: POTASSIUM CHLORIDE 20 MEQ POWDER FOR ORAL SOLN PO (11:45)
[2019-02-09] MEDS: ATORVASTATIN 20 MG TAB PO (20:09)
[2019-02-09] MEDS: METOPROLOL (XL) 100 MG TAB PO (20:10)
[2019-02-10] MEDS: PANTOPRAZOLE (EC) 40 MG TAB PO (05:43)
[2019-02-10 06:52] LABS: ADD MAN DIFF? NO
[2019-02-10 06:59] LABS: BASOPHILS % 0.3 % (0.0-2.0); EOSINOPHILS # 0.3 10^3/ul (0.0-0.5); EOSINOPHILS % 2.7 % (0.0-7.0); HEMATOCRIT 35.5 % (42.0-52.0); HEMOGLOBIN 10.8 g/dl (14.0-18.0); LYMPHOCYTES % 10.9 % (15.0-51.0); MEAN CORPUSCULAR HEMOGLOBIN 27.7 pg (29.0-33.0); MEAN CORPUSCULAR HGB CONC 30.4 g/dl (32.0-37.0); MONOCYTE # 1.3 10^3/ul (0.3-0.9); MONOCYTES % 13.6 % (0.0-11.0); NEUTROPHIL # 6.8 10^3/ul (1.6-7.5); PLATELET COUNT 134 10^3/UL (140-415); RED CELL DISTRIBUTION WIDTH 15.5 % (11.5-14.5)
[2019-02-10 06:59] LABS: WHITE BLOOD COUNT 9.5 10^3/ul (4.8-10.8)
[2019-02-10 07:16] LABS: BLOOD UREA NITROGEN 42 mg/dl (7-20); CALCIUM 8.6 mg/dl (8.4-10.2); CHLORIDE 97 mmol/L (97-110); CREATININE 1.25 mg/dl (0.61-1.24); Estimated GFR 58 mL/min (>60); GLUCOSE 94 mg/dl (70-220); MAGNESIUM 1.9 mg/dl (1.7-2.5); PHOSPHORUS 3.1 mg/dl (2.5-4.9); POTASSIUM 3.4 mmol/L (3.5-5.1); SODIUM 144 mmol/L (135-144)
[2019-02-10 07:34] LABS: ANION GAP 7 (5-13)
[2019-02-10 07:44] LABS: CARBON DIOXIDE 40 mmol/L (21-31)
[2019-02-10] MEDS: APIXABAN 5 MG TABLET PO ×2 (08:39→21:34)
[2019-02-10] MEDS: BUMETANIDE 1 MG TAB PO (08:39)
[2019-02-10] MEDS: ASPIRIN (EC) 81 MG TAB PO (08:39)
[2019-02-10] MEDS: METOPROLOL (XL) 100 MG TAB PO ×2 (08:40→21:34)
[2019-02-10] MEDS: POTASSIUM CHLORIDE (SR) 20 MEQ TAB PO (11:24)
[2019-02-10 13:14] LABS: AADO2 Arterial 43.9 mmHg (7.0-24.0); Allen Test ACCEPTAB; Arterial Base Excess 9.8 mmol/L (-3.0-3); Arterial Blood Gas Oxygen Sat 88.5 mmHG (95.0-98.0); Arterial Fraction of Oxyhgb 87.5 % (93.0-99.0); Arterial HCO3 33.9 mmol/L (22.0-26.0); Arterial MetHb 0.1 % (0.0-1.5); MODE ROOM AIR; Site Left Radial
[2019-02-10] MEDS: ACETAMINOPHEN 325 MG TAB PO (16:28)
[2019-02-10] MEDS: ALBUTEROL/IPRATROPIUM (NEB) 3 ML AMP HHN (20:44)
[2019-02-10] MEDS: BUDESONIDE (NEB) 0.5MG/2ML AMP HHN (20:44)
[2019-02-10] MEDS: ATORVASTATIN 20 MG TAB PO (21:34)
[2019-02-11] MEDS: PANTOPRAZOLE (EC) 40 MG TAB PO (06:31)
[2019-02-11 06:50] LABS: ADD MAN DIFF? NO
[2019-02-11 06:56] LABS: BASOPHILS % 0.3 % (0.0-2.0); EOSINOPHILS # 0.3 10^3/ul (0.0-0.5); EOSINOPHILS % 3.8 % (0.0-7.0); HEMATOCRIT 36.6 % (42.0-52.0); LYMPHOCYTES # 1.4 10^3/ul (0.8-2.9); LYMPHOCYTES % 15.1 % (15.0-51.0); MEAN CORPUSCULAR HEMOGLOBIN 27.9 pg (29.0-33.0); MEAN CORPUSCULAR HGB CONC 30.1 g/dl (32.0-37.0); MEAN CORPUSCULAR VOLUME 92.9 fl (82.0-101.0); MONOCYTES % 11.3 % (0.0-11.0); NEUTROPHIL # 6.2 10^3/ul (1.6-7.5); NEUTROPHILS % 69.1 % (39.0-77.0); PLATELET COUNT 161 10^3/UL (140-415); RED BLOOD COUNT 3.94 10^6/ul (4.70-6.10); RED CELL DISTRIBUTION WIDTH 15.7 % (11.5-14.5)
[2019-02-11 07:19] LABS: BLOOD UREA NITROGEN 42 mg/dl (7-20); CALCIUM 8.8 mg/dl (8.4-10.2); CHLORIDE 98 mmol/L (97-110); CREATININE 1.36 mg/dl (0.61-1.24); Estimated GFR 53 mL/min (>60); GLUCOSE 97 mg/dl (70-220); SODIUM 144 mmol/L (135-144)
[2019-02-11 07:25] LABS: ANION GAP 7 (5-13)
[2019-02-11 07:29] LABS: CARBON DIOXIDE 39 mmol/L (21-31)
[2019-02-11] MEDS: BUMETANIDE 1 MG TAB PO (08:32)
[2019-02-11] MEDS: ASPIRIN (EC) 81 MG TAB PO (08:33)
[2019-02-11] MEDS: APIXABAN 5 MG TABLET PO ×2 (08:33→20:40)
[2019-02-11] MEDS: METOPROLOL (XL) 100 MG TAB PO ×2 (08:34→20:41)
[2019-02-11] MEDS: BUDESONIDE (NEB) 0.5MG/2ML AMP HHN ×2 (09:55→20:21)
[2019-02-11] MEDS: ALBUTEROL/IPRATROPIUM (NEB) 3 ML AMP HHN ×3 (09:56→20:21)
[2019-02-11] MEDS: morphine 2 MG INJ IV (20:40)
[2019-02-11] MEDS: ATORVASTATIN 20 MG TAB PO (20:40)
[2019-02-12] MEDS: ACETAMINOPHEN 325 MG TAB PO (00:29)
[2019-02-12] MEDS: PANTOPRAZOLE (EC) 40 MG TAB PO (06:38)
[2019-02-12 07:25] LABS: ADD MAN DIFF? NO
[2019-02-12 07:31] LABS: BASOPHILS % 0.4 % (0.0-2.0); EOSINOPHILS # 0.2 10^3/ul (0.0-0.5); EOSINOPHILS % 2.1 % (0.0-7.0); HEMOGLOBIN 9.9 g/dl (14.0-18.0); LYMPHOCYTES # 1.2 10^3/ul (0.8-2.9); MEAN CORPUSCULAR HEMOGLOBIN 27.5 pg (29.0-33.0); MEAN CORPUSCULAR VOLUME 91.7 fl (82.0-101.0); MEAN PLATELET VOLUME 9.7 fl (7.4-10.4); MONOCYTES % 10.8 % (0.0-11.0); NEUTROPHIL # 6.6 10^3/ul (1.6-7.5); NEUTROPHILS % 73.1 % (39.0-77.0); PLATELET COUNT 178 10^3/UL (140-415); RED CELL DISTRIBUTION WIDTH 15.9 % (11.5-14.5)
[2019-02-12 08:18] LABS: ANION GAP 8 (5-13); BLOOD UREA NITROGEN 38 mg/dl (7-20); CALCIUM 8.4 mg/dl (8.4-10.2); CARBON DIOXIDE 35 mmol/L (21-31); CHLORIDE 100 mmol/L (97-110); CREATININE 1.07 mg/dl (0.61-1.24); Estimated GFR > 60 mL/min (>60); GLUCOSE 93 mg/dl (70-220); MAGNESIUM 1.9 mg/dl (1.7-2.5); PHOSPHORUS 3.5 mg/dl (2.5-4.9); POTASSIUM 3.6 mmol/L (3.5-5.1); SODIUM 143 mmol/L (135-144)
[2019-02-12] MEDS: ALBUTEROL/IPRATROPIUM (NEB) 3 ML AMP HHN ×4 (08:21→19:32)
[2019-02-12] MEDS: BUDESONIDE (NEB) 0.5MG/2ML AMP HHN ×2 (08:21→19:33)
[2019-02-12] MEDS: APIXABAN 5 MG TABLET PO ×2 (09:42→21:10)
[2019-02-12] MEDS: ASPIRIN (EC) 81 MG TAB PO (09:42)
[2019-02-12] MEDS: BUMETANIDE 1 MG TAB PO (09:42)
[2019-02-12] MEDS: METOPROLOL (XL) 100 MG TAB PO ×2 (09:43→21:11)
[2019-02-12] MEDS: SILVER SULFADIAZINE 1% 25 GM CR TOP (14:15)
[2019-02-12] MEDS: ATORVASTATIN 20 MG TAB PO (21:10)
[2019-02-12] MEDS: LORAZEPAM 2 MG INJ IV (23:35)
[2019-02-13 06:40] LABS: ADD MAN DIFF? NO
[2019-02-13] MEDS: PANTOPRAZOLE (EC) 40 MG TAB PO (06:43)
[2019-02-13 06:46] LABS: BASOPHILS % 0.4 % (0.0-2.0); EOSINOPHILS # 0.2 10^3/ul (0.0-0.5); EOSINOPHILS % 1.6 % (0.0-7.0); HEMATOCRIT 32.2 % (42.0-52.0); HEMOGLOBIN 9.9 g/dl (14.0-18.0); LYMPHOCYTES % 10.2 % (15.0-51.0); MEAN CORPUSCULAR HGB CONC 30.7 g/dl (32.0-37.0); MEAN CORPUSCULAR VOLUME 91.2 fl (82.0-101.0); MEAN PLATELET VOLUME 9.4 fl (7.4-10.4); MONOCYTE # 0.9 10^3/ul (0.3-0.9); MONOCYTES % 9.4 % (0.0-11.0); NEUTROPHIL # 7.8 10^3/ul (1.6-7.5); NEUTROPHILS % 77.8 % (39.0-77.0); PLATELET COUNT 195 10^3/UL (140-415); RED BLOOD COUNT 3.53 10^6/ul (4.70-6.10); RED CELL DISTRIBUTION WIDTH 16.1 % (11.5-14.5)
[2019-02-13] MEDS: BUDESONIDE (NEB) 0.5MG/2ML AMP HHN ×2 (07:29→19:54)
[2019-02-13] MEDS: ALBUTEROL/IPRATROPIUM (NEB) 3 ML AMP HHN ×3 (07:29→19:54)
[2019-02-13 07:31] LABS: ANION GAP 9 (5-13); BLOOD UREA NITROGEN 36 mg/dl (7-20); CALCIUM 8.7 mg/dl (8.4-10.2); CARBON DIOXIDE 34 mmol/L (21-31); CHLORIDE 99 mmol/L (97-110); CREATININE 1.11 mg/dl (0.61-1.24); Estimated GFR > 60 mL/min (>60); GLUCOSE 113 mg/dl (70-220); PHOSPHORUS 3.3 mg/dl (2.5-4.9); POTASSIUM 3.9 mmol/L (3.5-5.1); SODIUM 142 mmol/L (135-144)
[2019-02-13] MEDS: ASPIRIN (EC) 81 MG TAB PO (09:00)
[2019-02-13] MEDS: BUMETANIDE 1 MG TAB PO (10:31)
[2019-02-13] MEDS: APIXABAN 5 MG TABLET PO ×2 (10:31→21:50)
[2019-02-13] MEDS: METOPROLOL (XL) 100 MG TAB PO ×2 (10:32→21:49)
[2019-02-13] MEDS: SILVER SULFADIAZINE 1% 25 GM CR TOP (10:33)
[2019-02-13] MEDS: ATORVASTATIN 20 MG TAB PO (21:50)
[2019-02-13] MEDS: morphine 2 MG INJ IV (23:14)
[2019-02-14] MEDS: ALBUTEROL/IPRATROPIUM (NEB) 3 ML AMP HHN ×4 (04:16→20:03)
[2019-02-14] MEDS: PANTOPRAZOLE (EC) 40 MG TAB PO (05:47)
[2019-02-14] MEDS: METHYLPREDNISOLONE 125 MG INJ IV (05:47)
[2019-02-14 06:33] LABS: ADD MAN DIFF? NO
[2019-02-14 06:37] LABS: BASOPHILS % 0.4 % (0.0-2.0); EOSINOPHILS # 0.1 10^3/ul (0.0-0.5); EOSINOPHILS % 1.4 % (0.0-7.0); HEMATOCRIT 31.2 % (42.0-52.0); HEMOGLOBIN 9.6 g/dl (14.0-18.0); MEAN CORPUSCULAR HEMOGLOBIN 28.1 pg (29.0-33.0); MEAN CORPUSCULAR HGB CONC 30.8 g/dl (32.0-37.0); MEAN CORPUSCULAR VOLUME 91.2 fl (82.0-101.0); MEAN PLATELET VOLUME 9.5 fl (7.4-10.4); MONOCYTE # 0.8 10^3/ul (0.3-0.9); MONOCYTES % 7.9 % (0.0-11.0); NEUTROPHIL # 8.1 10^3/ul (1.6-7.5); NEUTROPHILS % 79.6 % (39.0-77.0); PLATELET COUNT 205 10^3/UL (140-415); RED BLOOD COUNT 3.42 10^6/ul (4.70-6.10); RED CELL DISTRIBUTION WIDTH 16.2 % (11.5-14.5)
[2019-02-14 06:37] LABS: WHITE BLOOD COUNT 10.1 10^3/ul (4.8-10.8)
[2019-02-14 07:38] LABS: ANION GAP 8 (5-13); BLOOD UREA NITROGEN 33 mg/dl (7-20); CALCIUM 8.6 mg/dl (8.4-10.2); CARBON DIOXIDE 32 mmol/L (21-31); CHLORIDE 103 mmol/L (97-110); CREATININE 1.09 mg/dl (0.61-1.24); Estimated GFR > 60 mL/min (>60); GLUCOSE 119 mg/dl (70-220); MAGNESIUM 2.1 mg/dl (1.7-2.5); POTASSIUM 3.9 mmol/L (3.5-5.1); SODIUM 143 mmol/L (135-144)
[2019-02-14] MEDS: BUDESONIDE (NEB) 0.5MG/2ML AMP HHN ×2 (08:05→20:03)
[2019-02-14] MEDS: ASPIRIN (EC) 81 MG TAB PO (09:09)
[2019-02-14] MEDS: METOPROLOL (XL) 100 MG TAB PO ×2 (09:09→21:43)
[2019-02-14] MEDS: BUMETANIDE 1 MG TAB PO (09:09)
[2019-02-14] MEDS: SILVER SULFADIAZINE 1% 25 GM CR TOP (09:10)
[2019-02-14] MEDS: APIXABAN 5 MG TABLET PO (09:10)
[2019-02-14] MEDS: BUMETANIDE 0.5 MG TAB PO (14:43)
[2019-02-14 19:38] LABS: HEMATOCRIT 28.1 % (42.0-52.0); HEMOGLOBIN 8.5 g/dl (14.0-18.0)
[2019-02-14] MEDS: ATORVASTATIN 20 MG TAB PO (21:43)
[2019-02-14] MEDS: PANTOPRAZOLE IV 80 MG in SOD CHLORIDE 0.9% 100 ML IVPB (21:43)
[2019-02-14] MEDS: PANTOPRAZOLE IV 80 MG in SOD CHLORIDE 0.9% 100 ML IV (22:23)
[2019-02-15 01:13] LABS: HEMATOCRIT 21.6 % (42.0-52.0)
[2019-02-15 01:45] LABS: HEMOGLOBIN 6.6 g/dl (14.0-18.0)
[2019-02-15] MEDS: OCTREOTIDE 50 MCG INJ SC (03:17)
[2019-02-15] MEDS: SOD CHLORIDE 0.9% 250 ML IV (05:31)
[2019-02-15] MEDS: ALBUMIN HUMAN 25% 50 ML IV (05:34)
[2019-02-15] MEDS: PANTOPRAZOLE IV 80 MG in SOD CHLORIDE 0.9% 100 ML IV ×2 (06:34→15:22)
[2019-02-15] MEDS: BUDESONIDE (NEB) 0.5MG/2ML AMP HHN ×2 (08:29→19:53)
[2019-02-15] MEDS: ALBUTEROL/IPRATROPIUM (NEB) 3 ML AMP HHN ×3 (08:29→19:53)
[2019-02-15] MEDS: METOPROLOL (XL) 100 MG TAB PO ×2 (09:00→21:00)
[2019-02-15] MEDS: ASPIRIN (EC) 81 MG TAB PO (09:00)
[2019-02-15] MEDS: SILVER SULFADIAZINE 1% 25 GM CR TOP (09:10)
[2019-02-15] MEDS: BUMETANIDE 1 MG TAB PO (09:11)
[2019-02-15 13:21] LABS: ADD MAN DIFF? NO
[2019-02-15 13:26] LABS: WHITE BLOOD COUNT 17.2 10^3/ul (4.8-10.8)
[2019-02-15 13:26] LABS: BASOPHILS % 0.2 % (0.0-2.0); HEMATOCRIT 23.3 % (42.0-52.0); HEMOGLOBIN 7.3 g/dl (14.0-18.0); LYMPHOCYTES # 1.3 10^3/ul (0.8-2.9); LYMPHOCYTES % 7.7 % (15.0-51.0); MEAN CORPUSCULAR HEMOGLOBIN 28.7 pg (29.0-33.0); MEAN CORPUSCULAR HGB CONC 31.3 g/dl (32.0-37.0); MEAN CORPUSCULAR VOLUME 91.7 fl (82.0-101.0); MEAN PLATELET VOLUME 9.8 fl (7.4-10.4); MONOCYTE # 0.9 10^3/ul (0.3-0.9); MONOCYTES % 5.3 % (0.0-11.0); NEUTROPHIL # 14.8 10^3/ul (1.6-7.5); NUCLEATED RED BLOOD CELLS # 0.1 10^3/ul (0.0-0.0); NUCLEATED RED BLOOD CELLS% 0.3 /100WBC (0.0-0.0); PLATELET COUNT 157 10^3/UL (140-415); RED BLOOD COUNT 2.54 10^6/ul (4.70-6.10); RED CELL DISTRIBUTION WIDTH 15.4 % (11.5-14.5)
[2019-02-15 13:45] LABS: ANION GAP 5 (5-13); BLOOD UREA NITROGEN 35 mg/dl (7-20); CALCIUM 7.8 mg/dl (8.4-10.2); CARBON DIOXIDE 32 mmol/L (21-31); CHLORIDE 106 mmol/L (97-110); CREATININE 1.16 mg/dl (0.61-1.24); Estimated GFR > 60 mL/min (>60); GLUCOSE 124 mg/dl (70-220); MAGNESIUM 1.9 mg/dl (1.7-2.5); PHOSPHORUS 4.4 mg/dl (2.5-4.9); POTASSIUM 4.4 mmol/L (3.5-5.1); SODIUM 143 mmol/L (135-144)
[2019-02-15] MEDS: BISACODYL (EC) 5 MG TAB PO (14:59)
[2019-02-15 15:48] LABS: HEMATOCRIT 21.3 % (42.0-52.0)
[2019-02-15 15:58] LABS: HEMOGLOBIN 6.9 g/dl (14.0-18.0)
[2019-02-15 16:33] LABS: HEMOGLOBIN 7.2 g/dl (14.0-18.0)
[2019-02-15 17:28] LABS: IMMEDIATE SPIN CROSSMATCH 1 4
[2019-02-15] MEDS: BUMETANIDE 0.5 MG TAB PO (17:39)
[2019-02-15] MEDS: POLYETHYLENE GLYCOL 3350 119 GM POWDER PO (17:39)
[2019-02-15] MEDS: MAGNESIUM CITRATE 300 ML BTL PO (17:51)
[2019-02-15] MEDS: ATORVASTATIN 20 MG TAB PO (21:01)
[2019-02-15 22:03] LABS: ADD MAN DIFF? NO
[2019-02-15 22:05] LABS: BASOPHILS % 0.2 % (0.0-2.0); EOSINOPHILS % 0.1 % (0.0-7.0); HEMATOCRIT 23.3 % (42.0-52.0); HEMOGLOBIN 7.6 g/dl (14.0-18.0); LYMPHOCYTES # 1.5 10^3/ul (0.8-2.9); LYMPHOCYTES % 10.5 % (15.0-51.0); MEAN CORPUSCULAR HEMOGLOBIN 28.4 pg (29.0-33.0); MEAN CORPUSCULAR HGB CONC 32.6 g/dl (32.0-37.0); MEAN CORPUSCULAR VOLUME 86.9 fl (82.0-101.0); MEAN PLATELET VOLUME 9.5 fl (7.4-10.4); MONOCYTES % 7.2 % (0.0-11.0); NEUTROPHIL # 11.6 10^3/ul (1.6-7.5); NEUTROPHILS % 81.4 % (39.0-77.0); NUCLEATED RED BLOOD CELLS% 0.2 /100WBC (0.0-0.0); PLATELET COUNT 170 10^3/UL (140-415); RED BLOOD COUNT 2.68 10^6/ul (4.70-6.10); RED CELL DISTRIBUTION WIDTH 15.4 % (11.5-14.5)
[2019-02-15 22:05] LABS: WHITE BLOOD COUNT 14.3 10^3/ul (4.8-10.8)
[2019-02-15] MEDS: SOD CHLORIDE 0.9% 1,000 ML IV (23:13)
[2019-02-16 02:25] LABS: ADD MAN DIFF? NO
[2019-02-16 02:27] LABS: WHITE BLOOD COUNT 13.1 10^3/ul (4.8-10.8)
[2019-02-16 02:27] LABS: BASOPHILS % 0.2 % (0.0-2.0); EOSINOPHILS # 0.1 10^3/ul (0.0-0.5); EOSINOPHILS % 0.4 % (0.0-7.0); HEMATOCRIT 22.1 % (42.0-52.0); HEMOGLOBIN 7.3 g/dl (14.0-18.0); LYMPHOCYTES # 1.4 10^3/ul (0.8-2.9); LYMPHOCYTES % 10.4 % (15.0-51.0); MEAN CORPUSCULAR VOLUME 87.7 fl (82.0-101.0); MEAN PLATELET VOLUME 9.5 fl (7.4-10.4); MONOCYTE # 0.8 10^3/ul (0.3-0.9); MONOCYTES % 6.1 % (0.0-11.0); NEUTROPHIL # 10.7 10^3/ul (1.6-7.5); NEUTROPHILS % 82.1 % (39.0-77.0); NUCLEATED RED BLOOD CELLS # 0.1 10^3/ul (0.0-0.0); NUCLEATED RED BLOOD CELLS% 0.4 /100WBC (0.0-0.0); PLATELET COUNT 167 10^3/UL (140-415); RED BLOOD COUNT 2.52 10^6/ul (4.70-6.10); RED CELL DISTRIBUTION WIDTH 15.6 % (11.5-14.5)
[2019-02-16] MEDS: PANTOPRAZOLE IV 80 MG in SOD CHLORIDE 0.9% 100 ML IV ×2 (02:32→12:14)
[2019-02-16] MEDS: POLYETHYLENE GLYCOL 3350 119 GM POWDER PO (05:06)
[2019-02-16] MEDS: ALBUTEROL/IPRATROPIUM (NEB) 3 ML AMP HHN ×3 (07:46→19:40)
[2019-02-16] MEDS: BUDESONIDE (NEB) 0.5MG/2ML AMP HHN ×2 (07:47→19:40)
[2019-02-16] MEDS: BISACODYL (EC) 5 MG TAB PO (08:23)
[2019-02-16] MEDS: BUMETANIDE 1 MG TAB PO (08:23)
[2019-02-16] MEDS: ASPIRIN (EC) 81 MG TAB PO (08:23)
[2019-02-16] MEDS: METOPROLOL (XL) 100 MG TAB PO ×2 (08:23→20:48)
[2019-02-16] MEDS: SILVER SULFADIAZINE 1% 25 GM CR TOP (08:24)
[2019-02-16 11:34] LABS: ADD MAN DIFF? NO
[2019-02-16 11:35] LABS: BASOPHILS % 0.3 % (0.0-2.0); EOSINOPHILS # 0.1 10^3/ul (0.0-0.5); EOSINOPHILS % 0.6 % (0.0-7.0); HEMATOCRIT 27.2 % (42.0-52.0); HEMOGLOBIN 8.6 g/dl (14.0-18.0); LYMPHOCYTES # 1.4 10^3/ul (0.8-2.9); LYMPHOCYTES % 12.3 % (15.0-51.0); MEAN CORPUSCULAR HEMOGLOBIN 28.6 pg (29.0-33.0); MEAN CORPUSCULAR HGB CONC 31.6 g/dl (32.0-37.0); MEAN CORPUSCULAR VOLUME 90.4 fl (82.0-101.0); MEAN PLATELET VOLUME 9.2 fl (7.4-10.4); MONOCYTE # 0.9 10^3/ul (0.3-0.9); NEUTROPHIL # 8.7 10^3/ul (1.6-7.5); NEUTROPHILS % 78.2 % (39.0-77.0); NUCLEATED RED BLOOD CELLS% 0.4 /100WBC (0.0-0.0); PLATELET COUNT 175 10^3/UL (140-415); RED BLOOD COUNT 3.01 10^6/ul (4.70-6.10); RED CELL DISTRIBUTION WIDTH 15.8 % (11.5-14.5)
[2019-02-16 11:35] LABS: WHITE BLOOD COUNT 11.2 10^3/ul (4.8-10.8)
[2019-02-16 11:57] LABS: ANION GAP 6 (5-13); BLOOD UREA NITROGEN 30 mg/dl (7-20); CALCIUM 8.1 mg/dl (8.4-10.2); CARBON DIOXIDE 34 mmol/L (21-31); CHLORIDE 105 mmol/L (97-110); CREATININE 1.22 mg/dl (0.61-1.24); GLUCOSE 98 mg/dl (70-220); MAGNESIUM 2.2 mg/dl (1.7-2.5); PHOSPHORUS 4.4 mg/dl (2.5-4.9); POTASSIUM 3.6 mmol/L (3.5-5.1); SODIUM 145 mmol/L (135-144)
[2019-02-16 11:59] LABS: ANION GAP 7 (5-13); BLOOD UREA NITROGEN 31 mg/dl (7-20); CALCIUM 8.1 mg/dl (8.4-10.2); CARBON DIOXIDE 34 mmol/L (21-31); CHLORIDE 104 mmol/L (97-110); CREATININE 1.19 mg/dl (0.61-1.24); Estimated GFR > 60 mL/min (>60); GLUCOSE 96 mg/dl (70-220); POTASSIUM 3.7 mmol/L (3.5-5.1); SODIUM 145 mmol/L (135-144)
[2019-02-16] MEDS: DIGOXIN 500 MCG INJ IV (17:17)
[2019-02-16] MEDS: ATORVASTATIN 20 MG TAB PO (20:48)
[2019-02-17] MEDS: PANTOPRAZOLE IV 80 MG in SOD CHLORIDE 0.9% 100 ML IV ×4 (01:02→21:20)
[2019-02-17 06:08] LABS: ADD MAN DIFF? NO
[2019-02-17 06:11] LABS: BASOPHILS % 0.2 % (0.0-2.0); EOSINOPHILS # 0.2 10^3/ul (0.0-0.5); EOSINOPHILS % 2.2 % (0.0-7.0); HEMATOCRIT 24.4 % (42.0-52.0); HEMOGLOBIN 7.9 g/dl (14.0-18.0); LYMPHOCYTES # 1.2 10^3/ul (0.8-2.9); LYMPHOCYTES % 14.5 % (15.0-51.0); MEAN CORPUSCULAR HEMOGLOBIN 29.2 pg (29.0-33.0); MEAN CORPUSCULAR HGB CONC 32.4 g/dl (32.0-37.0); MEAN PLATELET VOLUME 8.9 fl (7.4-10.4); MONOCYTE # 0.9 10^3/ul (0.3-0.9); MONOCYTES % 10.3 % (0.0-11.0); NEUTROPHIL # 5.9 10^3/ul (1.6-7.5); NEUTROPHILS % 72.3 % (39.0-77.0); NUCLEATED RED BLOOD CELLS # 0.1 10^3/ul (0.0-0.0); NUCLEATED RED BLOOD CELLS% 0.6 /100WBC (0.0-0.0); PLATELET COUNT 166 10^3/UL (140-415); RED BLOOD COUNT 2.71 10^6/ul (4.70-6.10); RED CELL DISTRIBUTION WIDTH 15.6 % (11.5-14.5)
[2019-02-17 06:11] LABS: WHITE BLOOD COUNT 8.2 10^3/ul (4.8-10.8)
[2019-02-17 06:35] LABS: ALBUMIN 2.6 g/dl (3.3-4.9); ANION GAP 2 (5-13); BLOOD UREA NITROGEN 23 mg/dl (7-20); CALCIUM 8.1 mg/dl (8.4-10.2); CARBON DIOXIDE 35 mmol/L (21-31); CHLORIDE 104 mmol/L (97-110); CREATININE 1.19 mg/dl (0.61-1.24); GLUCOSE 90 mg/dl (70-220); MAGNESIUM 2.2 mg/dl (1.7-2.5); PHOSPHORUS 4.1 mg/dl (2.5-4.9); POTASSIUM 3.5 mmol/L (3.5-5.1); SODIUM 141 mmol/L (135-144)
[2019-02-17] MEDS: BUDESONIDE (NEB) 0.5MG/2ML AMP HHN ×2 (07:18→20:21)
[2019-02-17] MEDS: ALBUTEROL/IPRATROPIUM (NEB) 3 ML AMP HHN ×3 (07:18→20:14)
[2019-02-17] MEDS: ASPIRIN (EC) 81 MG TAB PO (09:00)
[2019-02-17] MEDS: BUMETANIDE 1 MG TAB PO (10:10)
[2019-02-17] MEDS: METOPROLOL (XL) 100 MG TAB PO ×2 (10:10→21:24)
[2019-02-17] MEDS: POTASSIUM CHLORIDE 100 ML IVPB ×2 (10:11→13:11)
[2019-02-17] MEDS: SILVER SULFADIAZINE 1% 25 GM CR TOP (10:12)
[2019-02-17] MEDS: DIGOXIN 0.125 MG TAB PO (13:16)
[2019-02-17] MEDS: BARIUM SULF 2% 450 ML BTL (BERRY SMOOTHIE) PO ×2 (17:53→17:54)
[2019-02-17] MEDS: SOD CHLORIDE 0.9% 100 ML (20:41)
[2019-02-17] MEDS: IOHEXOL 300MG/ML 150 ML BTL (20:41)
[2019-02-17] MEDS: ATORVASTATIN 20 MG TAB PO (21:20)
[2019-02-18 06:33] LABS: ADD MAN DIFF? NO
[2019-02-18 06:41] LABS: WHITE BLOOD COUNT 7.4 10^3/ul (4.8-10.8)
[2019-02-18 06:41] LABS: BASOPHILS % 0.3 % (0.0-2.0); EOSINOPHILS # 0.1 10^3/ul (0.0-0.5); EOSINOPHILS % 1.9 % (0.0-7.0); HEMATOCRIT 24.6 % (42.0-52.0); HEMOGLOBIN 7.8 g/dl (14.0-18.0); LYMPHOCYTES # 1.1 10^3/ul (0.8-2.9); LYMPHOCYTES % 14.2 % (15.0-51.0); MEAN CORPUSCULAR HEMOGLOBIN 29.4 pg (29.0-33.0); MEAN CORPUSCULAR HGB CONC 31.7 g/dl (32.0-37.0); MEAN CORPUSCULAR VOLUME 92.8 fl (82.0-101.0); MEAN PLATELET VOLUME 9.3 fl (7.4-10.4); MONOCYTE # 0.7 10^3/ul (0.3-0.9); MONOCYTES % 8.9 % (0.0-11.0); NEUTROPHIL # 5.5 10^3/ul (1.6-7.5); NEUTROPHILS % 74.2 % (39.0-77.0); NUCLEATED RED BLOOD CELLS # 0.1 10^3/ul (0.0-0.0); NUCLEATED RED BLOOD CELLS% 0.7 /100WBC (0.0-0.0); PLATELET COUNT 191 10^3/UL (140-415); RED BLOOD COUNT 2.65 10^6/ul (4.70-6.10); RED CELL DISTRIBUTION WIDTH 15.5 % (11.5-14.5)
[2019-02-18 06:58] LABS: ALBUMIN 2.6 g/dl (3.3-4.9); ANION GAP 5 (5-13); BLOOD UREA NITROGEN 20 mg/dl (7-20); CALCIUM 7.9 mg/dl (8.4-10.2); CARBON DIOXIDE 33 mmol/L (21-31); CHLORIDE 101 mmol/L (97-110); CREATININE 1.19 mg/dl (0.61-1.24); GLUCOSE 137 mg/dl (70-220); PHOSPHORUS 4.3 mg/dl (2.5-4.9); POTASSIUM 3.6 mmol/L (3.5-5.1); SODIUM 139 mmol/L (135-144)
[2019-02-18] MEDS: BUDESONIDE (NEB) 0.5MG/2ML AMP HHN ×2 (07:53→20:17)
[2019-02-18] MEDS: ALBUTEROL/IPRATROPIUM (NEB) 3 ML AMP HHN ×4 (07:53→20:17)
[2019-02-18 09:18] LABS: IRON 19 ug/dl (35-150)
[2019-02-18 09:27] LABS: % IRON SATURATION 7 % SAT (22-52); TOTAL IRON BINDING CAPACITY 287 ug/dl (241-421)
[2019-02-18 09:42] LABS: INR 1.09; PROTIME 14.2 Sec (11.9-14.9); PT RATIO 1.1
[2019-02-18 09:54] LABS: LACTATE DEHYDROGENASE 558 IU/L (313-618)
[2019-02-18 09:54] LABS: TOTAL PROTEIN 5.6 g/dl (6.1-8.1)
[2019-02-18] MEDS: POTASSIUM CHLORIDE (SR) 20 MEQ TAB PO (10:13)
[2019-02-18] MEDS: METOPROLOL (XL) 100 MG TAB PO ×2 (10:14→20:11)
[2019-02-18] MEDS: LIDOCAINE 1% (MPF) 5 ML VIAL (11:00)
[2019-02-18] MEDS: ASPIRIN (EC) 81 MG TAB PO (11:00)
[2019-02-18 11:49] LABS: CARCINOEMBRYONIC ANTIGEN 0.9 ng/ml (0.0-5.0)
[2019-02-18 12:22] LABS: FERRITIN 8.6 ng/ml (11.1-264.0)
[2019-02-18 12:29] LABS: FLUID GLUCOSE 114 mg/dl; FLUID LD 206 U/L; FLUID TYPE THORACENTESIS FLUID
[2019-02-18 12:30] LABS: FLUID TOTAL PROTEIN < 2.0 g/dl
[2019-02-18 12:46] LABS: FLD PMN% 6.5 %; FLD RBC 3000 /uL; FLD WBC 185 /cmm
[2019-02-18 13:19] LABS: FLD TYPE THORACENTHESIS
[2019-02-18 13:20] LABS: FLD CLARITY SLIGHTLY CLOUDY; FLD COLOR YELLOW
[2019-02-18] MEDS: SILVER SULFADIAZINE 1% 25 GM CR TOP (13:20)
[2019-02-18] MEDS: DIGOXIN 0.125 MG TAB PO (13:20)
[2019-02-18 13:23] LABS: PATH REVIEW? YES
[2019-02-18] MEDS: SOD FERRIC GLUC COMPLX 125 MG in SOD CHLORIDE 0.9% 100 ML IVPB (16:56)
[2019-02-18] MEDS: BUMETANIDE 1 MG TAB PO (20:10)
[2019-02-18] MEDS: ATORVASTATIN 20 MG TAB PO (20:11)
[2019-02-18] MEDS: PANTOPRAZOLE (EC) 40 MG TAB PO (20:11)
[2019-02-18] MEDS: GUAIFENESIN/DM 5ML CUP PO (21:58)
[2019-02-19] MEDS: GUAIFENESIN/DM 5ML CUP PO (04:15)
[2019-02-19 06:59] LABS: ADD MAN DIFF? NO
[2019-02-19 07:04] LABS: WHITE BLOOD COUNT 9.1 10^3/ul (4.8-10.8)
[2019-02-19 07:04] LABS: BASOPHILS % 0.3 % (0.0-2.0); EOSINOPHILS # 0.2 10^3/ul (0.0-0.5); EOSINOPHILS % 2.1 % (0.0-7.0); HEMOGLOBIN 8.3 g/dl (14.0-18.0); LYMPHOCYTES # 1.1 10^3/ul (0.8-2.9); LYMPHOCYTES % 11.9 % (15.0-51.0); MEAN CORPUSCULAR HEMOGLOBIN 28.5 pg (29.0-33.0); MEAN CORPUSCULAR HGB CONC 30.7 g/dl (32.0-37.0); MEAN CORPUSCULAR VOLUME 92.8 fl (82.0-101.0); MEAN PLATELET VOLUME 9.1 fl (7.4-10.4); MONOCYTE # 0.8 10^3/ul (0.3-0.9); MONOCYTES % 8.9 % (0.0-11.0); NEUTROPHILS % 76.3 % (39.0-77.0); NUCLEATED RED BLOOD CELLS # 0.1 10^3/ul (0.0-0.0); NUCLEATED RED BLOOD CELLS% 0.5 /100WBC (0.0-0.0); PLATELET COUNT 219 10^3/UL (140-415); RED BLOOD COUNT 2.91 10^6/ul (4.70-6.10); RED CELL DISTRIBUTION WIDTH 15.5 % (11.5-14.5)
[2019-02-19 07:35] LABS: ALBUMIN 3.2 g/dl (3.3-4.9); ANION GAP 4 (5-13); BLOOD UREA NITROGEN 20 mg/dl (7-20); CARBON DIOXIDE 34 mmol/L (21-31); CHLORIDE 103 mmol/L (97-110); CREATININE 1.19 mg/dl (0.61-1.24); GLUCOSE 112 mg/dl (70-220); MAGNESIUM 1.8 mg/dl (1.7-2.5); PHOSPHORUS 3.9 mg/dl (2.5-4.9); POTASSIUM 3.4 mmol/L (3.5-5.1); SODIUM 141 mmol/L (135-144)
[2019-02-19] MEDS: PROPOFOL 40 ML (07:54)
[2019-02-19] MEDS: LIDOCAINE 100 MG SYRINGE (07:54)
[2019-02-19] MEDS: BUMETANIDE 1 MG TAB PO ×2 (08:21→22:58)
[2019-02-19] MEDS: LOSARTAN 25 MG TAB PO (08:21)
[2019-02-19] MEDS: PANTOPRAZOLE (EC) 40 MG TAB PO ×2 (08:21→21:18)
[2019-02-19] MEDS: METOPROLOL (XL) 100 MG TAB PO ×2 (08:22→21:19)
[2019-02-19] MEDS: BUDESONIDE (NEB) 0.5MG/2ML AMP HHN ×2 (08:41→22:44)
[2019-02-19] MEDS: ALBUTEROL/IPRATROPIUM (NEB) 3 ML AMP HHN ×3 (08:41→22:44)
[2019-02-19] MEDS: POTASSIUM CHLORIDE (SR) 20 MEQ TAB PO (09:56)
[2019-02-19] MEDS: SILVER SULFADIAZINE 1% 25 GM CR TOP (09:56)
[2019-02-19] MEDS: SOD FERRIC GLUC COMPLX 125 MG in SOD CHLORIDE 0.9% 100 ML IVPB (12:18)
[2019-02-19] MEDS: DIGOXIN 0.125 MG TAB PO (12:20)
[2019-02-19] MEDS: ACETAMINOPHEN 325 MG TAB PO (16:49)
[2019-02-19] MEDS: MESALAMINE (EC) 400 MG CAP PO (21:00)
[2019-02-19] MEDS: ATORVASTATIN 20 MG TAB PO (21:18)
[2019-02-20 06:06] LABS: ADD MAN DIFF? NO
[2019-02-20 06:18] LABS: WHITE BLOOD COUNT 8.1 10^3/ul (4.8-10.8)
[2019-02-20 06:18] LABS: BASOPHILS % 0.5 % (0.0-2.0); EOSINOPHILS # 0.3 10^3/ul (0.0-0.5); EOSINOPHILS % 3.6 % (0.0-7.0); HEMATOCRIT 26.4 % (42.0-52.0); HEMOGLOBIN 8.3 g/dl (14.0-18.0); LYMPHOCYTES # 1.1 10^3/ul (0.8-2.9); LYMPHOCYTES % 13.1 % (15.0-51.0); MEAN CORPUSCULAR HEMOGLOBIN 28.9 pg (29.0-33.0); MEAN CORPUSCULAR HGB CONC 31.4 g/dl (32.0-37.0); MEAN PLATELET VOLUME 9.7 fl (7.4-10.4); MONOCYTE # 0.6 10^3/ul (0.3-0.9); MONOCYTES % 7.6 % (0.0-11.0); NEUTROPHILS % 74.3 % (39.0-77.0); NUCLEATED RED BLOOD CELLS # 0.1 10^3/ul (0.0-0.0); NUCLEATED RED BLOOD CELLS% 0.9 /100WBC (0.0-0.0); PLATELET COUNT 213 10^3/UL (140-415); RED BLOOD COUNT 2.87 10^6/ul (4.70-6.10); RED CELL DISTRIBUTION WIDTH 15.9 % (11.5-14.5)
[2019-02-20 06:35] LABS: ALBUMIN 3.2 g/dl (3.3-4.9); ANION GAP 5 (5-13); BLOOD UREA NITROGEN 19 mg/dl (7-20); CALCIUM 8.2 mg/dl (8.4-10.2); CARBON DIOXIDE 33 mmol/L (21-31); CHLORIDE 104 mmol/L (97-110); CREATININE 1.21 mg/dl (0.61-1.24); GLUCOSE 98 mg/dl (70-220); MAGNESIUM 1.7 mg/dl (1.7-2.5); PHOSPHORUS 3.8 mg/dl (2.5-4.9); POTASSIUM 3.7 mmol/L (3.5-5.1); SODIUM 142 mmol/L (135-144)
[2019-02-20] MEDS: ALTEPLASE (CATHFLO) 2 MG INJ CATHETER ×2 (06:47→19:40)
[2019-02-20] MEDS: ALBUTEROL/IPRATROPIUM (NEB) 3 ML AMP HHN ×3 (07:14→19:40)
[2019-02-20] MEDS: BUDESONIDE (NEB) 0.5MG/2ML AMP HHN ×2 (07:25→19:40)
[2019-02-20] MEDS: MESALAMINE (EC) 400 MG CAP PO ×3 (11:09→21:06)
[2019-02-20] MEDS: METOPROLOL (XL) 100 MG TAB PO ×2 (11:10→21:00)
[2019-02-20] MEDS: PANTOPRAZOLE (EC) 40 MG TAB PO ×2 (11:11→21:06)
[2019-02-20] MEDS: BUMETANIDE 1 MG TAB PO ×2 (11:11→21:06)
[2019-02-20] MEDS: MAGNESIUM OXIDE 400 MG TAB PO (11:11)
[2019-02-20] MEDS: LOSARTAN 25 MG TAB PO (11:11)
[2019-02-20] MEDS: POTASSIUM CHLORIDE (SR) 20 MEQ TAB PO (11:11)
[2019-02-20] MEDS: SILVER SULFADIAZINE 1% 25 GM CR TOP (11:13)
[2019-02-20 12:19] LABS: AADO2 Arterial 121.4 mmHg (7.0-24.0); Allen Test ACCEPTAB; Arterial Base Excess 4.1 mmol/L (-3.0-3); Arterial Blood Gas Oxygen Sat 94.7 mmHG (95.0-98.0); Arterial COHb 0.3 % (0.0-3.0); Arterial MetHb 0.4 % (0.0-1.5); Arterial pCO2 45.5 mmhg (35-45); MODE NASAL CANNULA; Site Left Radial
[2019-02-20] MEDS: DIGOXIN 0.125 MG TAB PO (16:03)
[2019-02-20] MEDS: SOD FERRIC GLUC COMPLX 125 MG in SOD CHLORIDE 0.9% 100 ML IVPB (16:03)
[2019-02-20] MEDS: ATORVASTATIN 20 MG TAB PO (21:06)
[2019-02-21] MEDS: ACETAMINOPHEN 325 MG TAB PO (05:17)
[2019-02-21 06:34] LABS: ADD MAN DIFF? NO
[2019-02-21 06:38] LABS: WHITE BLOOD COUNT 8.2 10^3/ul (4.8-10.8)
[2019-02-21 06:38] LABS: BASOPHILS % 0.4 % (0.0-2.0); EOSINOPHILS # 0.2 10^3/ul (0.0-0.5); EOSINOPHILS % 2.4 % (0.0-7.0); HEMATOCRIT 27.6 % (42.0-52.0); HEMOGLOBIN 8.4 g/dl (14.0-18.0); LYMPHOCYTES # 1.4 10^3/ul (0.8-2.9); LYMPHOCYTES % 17.2 % (15.0-51.0); MEAN CORPUSCULAR HEMOGLOBIN 29.2 pg (29.0-33.0); MEAN CORPUSCULAR HGB CONC 30.4 g/dl (32.0-37.0); MEAN CORPUSCULAR VOLUME 95.8 fl (82.0-101.0); MEAN PLATELET VOLUME 9.3 fl (7.4-10.4); MONOCYTE # 0.7 10^3/ul (0.3-0.9); MONOCYTES % 8.7 % (0.0-11.0); NEUTROPHIL # 5.7 10^3/ul (1.6-7.5); NEUTROPHILS % 70.2 % (39.0-77.0); NUCLEATED RED BLOOD CELLS% 0.5 /100WBC (0.0-0.0); PLATELET COUNT 328 10^3/UL (140-415); RED BLOOD COUNT 2.88 10^6/ul (4.70-6.10); RED CELL DISTRIBUTION WIDTH 16.3 % (11.5-14.5)
[2019-02-21 07:02] LABS: ALBUMIN 3.3 g/dl (3.3-4.9); ANION GAP 5 (5-13); BLOOD UREA NITROGEN 16 mg/dl (7-20); CALCIUM 8.4 mg/dl (8.4-10.2); CARBON DIOXIDE 35 mmol/L (21-31); CHLORIDE 102 mmol/L (97-110); CREATININE 1.16 mg/dl (0.61-1.24); GLUCOSE 103 mg/dl (70-220); MAGNESIUM 1.8 mg/dl (1.7-2.5); PHOSPHORUS 3.6 mg/dl (2.5-4.9); POTASSIUM 3.5 mmol/L (3.5-5.1); SODIUM 142 mmol/L (135-144)
[2019-02-21] MEDS: ALBUTEROL/IPRATROPIUM (NEB) 3 ML AMP HHN ×3 (07:42→19:44)
[2019-02-21] MEDS: BUDESONIDE (NEB) 0.5MG/2ML AMP HHN ×2 (07:53→19:45)
[2019-02-21] MEDS: PANTOPRAZOLE (EC) 40 MG TAB PO ×2 (08:36→20:36)
[2019-02-21] MEDS: METOPROLOL (XL) 100 MG TAB PO ×2 (08:36→20:39)
[2019-02-21] MEDS: BUMETANIDE 1 MG TAB PO ×2 (08:36→20:36)
[2019-02-21] MEDS: MESALAMINE (EC) 400 MG CAP PO ×3 (08:37→20:36)
[2019-02-21] MEDS: SILVER SULFADIAZINE 1% 25 GM CR TOP (08:37)
[2019-02-21] MEDS: LOSARTAN 25 MG TAB PO (08:37)
[2019-02-21] MEDS: POTASSIUM CHLORIDE (SR) 20 MEQ TAB PO (08:40)
[2019-02-21] MEDS: MAGNESIUM OXIDE 400 MG TAB PO (08:40)
[2019-02-21] MEDS: APIXABAN 5 MG TABLET PO ×2 (12:29→20:36)
[2019-02-21] MEDS: DIGOXIN 0.125 MG TAB PO (12:29)
[2019-02-21] MEDS: KETOROLAC 15 MG INJ IV (12:30)
[2019-02-21] MEDS: ATORVASTATIN 20 MG TAB PO (20:36)
[2019-02-22] MEDS: ALBUTEROL/IPRATROPIUM (NEB) 3 ML AMP HHN ×3 (07:21→19:32)
[2019-02-22] MEDS: BUDESONIDE (NEB) 0.5MG/2ML AMP HHN ×2 (07:21→19:32)
[2019-02-22] MEDS: APIXABAN 5 MG TABLET PO ×2 (09:41→20:38)
[2019-02-22] MEDS: LOSARTAN 25 MG TAB PO (09:41)
[2019-02-22] MEDS: PANTOPRAZOLE (EC) 40 MG TAB PO ×2 (09:41→20:40)
[2019-02-22] MEDS: BUMETANIDE 1 MG TAB PO ×2 (09:42→20:38)
[2019-02-22] MEDS: METOPROLOL (XL) 100 MG TAB PO ×2 (09:42→20:40)
[2019-02-22] MEDS: MESALAMINE (EC) 400 MG CAP PO ×3 (09:42→20:38)
[2019-02-22] MEDS: SILVER SULFADIAZINE 1% 25 GM CR TOP (09:43)
[2019-02-22] MEDS: ACETAMINOPHEN 325 MG TAB PO (10:45)
[2019-02-22 11:42] LABS: FLD MN% 93.5 %
[2019-02-22] MEDS ORDERED: HYDROCODONE/APAP (5/325) TAB PO (12:00)
[2019-02-22] MEDS: POTASSIUM CHLORIDE (SR) 20 MEQ TAB PO (13:35)
[2019-02-22] MEDS: DIGOXIN 0.125 MG TAB PO (13:36)
[2019-02-22] MEDS: MAGNESIUM SULFATE 2 GM/50 ML 50 ML IVPB (15:50)
[2019-02-22] MEDS: ATORVASTATIN 20 MG TAB PO (20:40)
[2019-02-23] MEDS: ALBUTEROL/IPRATROPIUM (NEB) 3 ML AMP HHN ×3 (08:19→19:31)
[2019-02-23] MEDS: BUDESONIDE (NEB) 0.5MG/2ML AMP HHN ×2 (08:20→19:32)
[2019-02-23] MEDS: MESALAMINE (EC) 400 MG CAP PO ×3 (08:55→21:29)
[2019-02-23] MEDS: PANTOPRAZOLE (EC) 40 MG TAB PO ×2 (08:55→21:29)
[2019-02-23] MEDS: METOPROLOL (XL) 100 MG TAB PO ×2 (08:55→21:00)
[2019-02-23] MEDS: BUMETANIDE 1 MG TAB PO ×2 (08:56→21:29)
[2019-02-23] MEDS: APIXABAN 5 MG TABLET PO ×2 (08:56→21:29)
[2019-02-23] MEDS: LOSARTAN 25 MG TAB PO (08:56)
[2019-02-23] MEDS: SILVER SULFADIAZINE 1% 25 GM CR TOP (08:57)
[2019-02-23 11:08] LABS: ADD MAN DIFF? NO
[2019-02-23 11:12] LABS: BASOPHIL # 0.1 10^3/ul (0.0-0.1); BASOPHILS % 0.7 % (0.0-2.0); EOSINOPHILS # 0.2 10^3/ul (0.0-0.5); EOSINOPHILS % 3.3 % (0.0-7.0); HEMOGLOBIN 9.5 g/dl (14.0-18.0); LYMPHOCYTES # 1.3 10^3/ul (0.8-2.9); LYMPHOCYTES % 18.4 % (15.0-51.0); MEAN CORPUSCULAR HEMOGLOBIN 28.5 pg (29.0-33.0); MEAN CORPUSCULAR HGB CONC 29.7 g/dl (32.0-37.0); MEAN CORPUSCULAR VOLUME 96.1 fl (82.0-101.0); MEAN PLATELET VOLUME 8.7 fl (7.4-10.4); MONOCYTE # 0.7 10^3/ul (0.3-0.9); MONOCYTES % 10.2 % (0.0-11.0); NEUTROPHIL # 4.8 10^3/ul (1.6-7.5); NEUTROPHILS % 66.6 % (39.0-77.0); NUCLEATED RED BLOOD CELLS% 0.3 /100WBC (0.0-0.0); PLATELET COUNT 442 10^3/UL (140-415); RED BLOOD COUNT 3.33 10^6/ul (4.70-6.10); RED CELL DISTRIBUTION WIDTH 17.4 % (11.5-14.5)
[2019-02-23 11:12] LABS: WHITE BLOOD COUNT 7.2 10^3/ul (4.8-10.8)
[2019-02-23 11:33] LABS: ANION GAP 6 (5-13); BLOOD UREA NITROGEN 19 mg/dl (7-20); CALCIUM 8.8 mg/dl (8.4-10.2); CARBON DIOXIDE 34 mmol/L (21-31); CHLORIDE 101 mmol/L (97-110); CREATININE 1.16 mg/dl (0.61-1.24); Estimated GFR > 60 mL/min (>60); GLUCOSE 115 mg/dl (70-220); PHOSPHORUS 4.2 mg/dl (2.5-4.9); POTASSIUM 3.7 mmol/L (3.5-5.1); SODIUM 141 mmol/L (135-144)
[2019-02-23] MEDS: DIGOXIN 0.125 MG TAB PO (13:01)
[2019-02-23] MEDS: ATORVASTATIN 20 MG TAB PO (21:29)
[2019-02-23] MEDS: ACETAMINOPHEN 325 MG TAB PO (22:29)
[2019-02-24 06:37] LABS: ADD MAN DIFF? NO
[2019-02-24 06:49] LABS: WHITE BLOOD COUNT 6.1 10^3/ul (4.8-10.8)
[2019-02-24 06:49] LABS: BASOPHILS % 0.3 % (0.0-2.0); EOSINOPHILS # 0.2 10^3/ul (0.0-0.5); HEMATOCRIT 30.7 % (42.0-52.0); HEMOGLOBIN 9.2 g/dl (14.0-18.0); LYMPHOCYTES # 1.4 10^3/ul (0.8-2.9); LYMPHOCYTES % 23.6 % (15.0-51.0); MEAN CORPUSCULAR HEMOGLOBIN 28.6 pg (29.0-33.0); MEAN CORPUSCULAR VOLUME 95.3 fl (82.0-101.0); MONOCYTE # 0.7 10^3/ul (0.3-0.9); MONOCYTES % 10.8 % (0.0-11.0); NEUTROPHIL # 3.8 10^3/ul (1.6-7.5); NEUTROPHILS % 61.5 % (39.0-77.0); PLATELET COUNT 439 10^3/UL (140-415); RED BLOOD COUNT 3.22 10^6/ul (4.70-6.10); RED CELL DISTRIBUTION WIDTH 17.2 % (11.5-14.5)
[2019-02-24 07:16] LABS: ANION GAP 5 (5-13); BLOOD UREA NITROGEN 18 mg/dl (7-20); CALCIUM 8.3 mg/dl (8.4-10.2); CARBON DIOXIDE 36 mmol/L (21-31); CHLORIDE 100 mmol/L (97-110); CREATININE 1.17 mg/dl (0.61-1.24); Estimated GFR > 60 mL/min (>60); GLUCOSE 92 mg/dl (70-220); MAGNESIUM 1.9 mg/dl (1.7-2.5); PHOSPHORUS 4.3 mg/dl (2.5-4.9); POTASSIUM 3.4 mmol/L (3.5-5.1); SODIUM 141 mmol/L (135-144)
[2019-02-24] MEDS: LOSARTAN 25 MG TAB PO ×2 (09:00→09:11)
[2019-02-24] MEDS: METOPROLOL (XL) 100 MG TAB PO ×2 (09:00→21:24)
[2019-02-24] MEDS: BUMETANIDE 1 MG TAB PO ×2 (09:10→21:23)
[2019-02-24] MEDS: APIXABAN 5 MG TABLET PO ×2 (09:11→21:23)
[2019-02-24] MEDS: MESALAMINE (EC) 400 MG CAP PO ×3 (09:11→21:23)
[2019-02-24] MEDS: PANTOPRAZOLE (EC) 40 MG TAB PO ×2 (09:12→21:22)
[2019-02-24] MEDS: SILVER SULFADIAZINE 1% 25 GM CR TOP (09:12)
[2019-02-24] MEDS: POTASSIUM CHLORIDE (SR) 20 MEQ TAB PO (13:44)
[2019-02-24] MEDS: ACETAMINOPHEN 325 MG TAB PO (13:45)
[2019-02-24] MEDS: DIGOXIN 0.125 MG TAB PO (13:45)
[2019-02-24] MEDS: BUDESONIDE (NEB) 0.5MG/2ML AMP HHN ×2 (16:01→20:49)
[2019-02-24] MEDS: ALBUTEROL/IPRATROPIUM (NEB) 3 ML AMP HHN ×3 (16:01→20:49)
[2019-02-24] MEDS: ATORVASTATIN 20 MG TAB PO (21:23)
[2019-02-25] MEDS: ALTEPLASE (CATHFLO) 2 MG INJ CATHETER (06:30)
[2019-02-25] MEDS: PANTOPRAZOLE (EC) 40 MG TAB PO ×2 (09:40→20:45)
[2019-02-25] MEDS: POTASSIUM CHLORIDE (SR) 20 MEQ TAB PO (09:40)
[2019-02-25] MEDS: AMIODARONE 200 MG TAB PO (09:40)
[2019-02-25] MEDS: BUMETANIDE 1 MG TAB PO ×2 (09:40→20:45)
[2019-02-25] MEDS: APIXABAN 5 MG TABLET PO ×2 (09:40→20:45)
[2019-02-25] MEDS: MESALAMINE (EC) 400 MG CAP PO ×3 (09:40→20:46)
[2019-02-25] MEDS: LOSARTAN 25 MG TAB PO (09:41)
[2019-02-25] MEDS: METOPROLOL (XL) 100 MG TAB PO ×2 (09:41→20:52)
[2019-02-25] MEDS: SILVER SULFADIAZINE 1% 25 GM CR TOP (09:47)
[2019-02-25] MEDS: DIGOXIN 0.125 MG TAB PO (13:00)
[2019-02-25] MEDS: ALBUTEROL/IPRATROPIUM (NEB) 3 ML AMP HHN ×3 (14:00→20:30)
[2019-02-25] MEDS: BUDESONIDE (NEB) 0.5MG/2ML AMP HHN ×2 (14:29→20:20)
[2019-02-25] MEDS: ATORVASTATIN 20 MG TAB PO (20:45)
== END 2019-02-25 21:36 | DRG 871 ==
LOC: TEL 02-07 10:39 → E/R 10:38 → PP2 02-19 11:43 → ICU 12:21
PROC: 0DBH8ZX Excision of Cecum, Via Natural or Artificial Opening Endoscopic, Diagnostic (ICD-10-PCS; principal; 2019-02-17 14:00)
PROC: 0DBP8ZZ Excision of Rectum, Via Natural or Artificial Opening Endoscopic (ICD-10-PCS; 2019-02-17 14:00)
PROC: 5A09457 Assistance with Respiratory Ventilation, 24-96 Consecutive Hours, Continuous Positive Airway Pressure (ICD-10-PCS; 2019-02-17 14:00)
PROC: 02HV33Z Insertion of Infusion Device into Superior Vena Cava, Percutaneous Approach (ICD-10-PCS; 2019-02-17 14:00)
PROC: 0W993ZX Drainage of Right Pleural Cavity, Percutaneous Approach, Diagnostic (ICD-10-PCS; 2019-02-17 14:00)
DX: A41.9 Sepsis, unspecified organism (principal); J18.9 Pneumonia, unspecified organism; N17.0 Acute kidney failure with tubular necrosis; J96.01 Acute respiratory failure with hypoxia; I50.21 Acute systolic (congestive) heart failure; I21.4 Non-ST elevation (NSTEMI) myocardial infarction; R57.8 Other shock; K72.00 Acute and subacute hepatic failure without coma; I24.8 Other forms of acute ischemic heart disease; I42.9 Cardiomyopathy, unspecified; I13.0 Hypertensive heart and chronic kidney disease with heart failure and stage 1 through stage 4 chronic kidney disease, or unspecified chronic kidney disease; K63.3 Ulcer of intestine; K92.1 Melena; K92.2 Gastrointestinal hemorrhage, unspecified; J90 Pleural effusion, not elsewhere classified; K62.1 Rectal polyp; K64.8 Other hemorrhoids; K57.90 Diverticulosis of intestine, part unspecified, without perforation or abscess without bleeding; I48.91 Unspecified atrial fibrillation; I07.1 Rheumatic tricuspid insufficiency; I25.5 Ischemic cardiomyopathy; E11.22 Type 2 diabetes mellitus with diabetic chronic kidney disease; E78.00 Pure hypercholesterolemia, unspecified; E87.6 Hypokalemia; D69.6 Thrombocytopenia, unspecified; G47.30 Sleep apnea, unspecified; R65.20 Severe sepsis without septic shock; R06.89 Other abnormalities of breathing; R74.0 Nonspecific elevation of levels of transaminase and lactic acid dehydrogenase [LDH]; N18.9 Chronic kidney disease, unspecified; D64.89 Other specified anemias
CPT/HCPCS: 36415; 36430; 36569; 36600; 71045; 74177; 76705; 76775; 76937; 76942; 78582; 80048; 80053; 80061; 80069; 80162; 81001; 81003; 82378; 82550; 82553; 82570; 82728; 82803; 82945; 82962; 83036; 83540; 83605; 83615; 83735; 83880; 84100; 84145; 84155; 84157; 84300; 84443; 84484; 84560; 85014; 85018; 85025; 85378; 85610; 85730; 86704; 86709; 86803; 86850; 86900; 86901; 86920; 87040-91; 87070; 87081; 87086; 87102; 87116; 87340; 88305; 89051; 89190; 93005; 93306; 93970; 94640; 94644; 94660; 94664; 96374; 96375; 97110; 97116; 97162; 97165; 97530; 97535; 99285-25